=== PATIENT | female | born 2000 | race Caucasian/White ===

== ENCOUNTER → 2024-03-14 | Outpatient (CLI) | payer OTHER, SELFPAY ==
[2024-03-14 08:49] LABS: Absolute Lymphocyte Count 2.45 X10^3/uL (0.83-4.51); Absolute Neutrophil Count 4.9 X10^3/uL (2.0-7.7); Basophil# 0.05 X10^3/uL; Basophil% 0.6 % (0-1); Eosinophil# 0.14 X10^3/uL; Eosinophils% 1.7 % (0-5); Hematocrit 41.2 % (37-47); Hemoglobin 13.5 g/dL (12.0-15.0); Lymphocyte # 2.45 X10^3/ul (0.83-4.51); Lymphocyte % 30.4 % (19-41); Mean Corp Hgb Conc 32.8 g/dL (32-36); Mean Corpuscular Hgb 28.4 pg (27.0-32.0); Mean Corpuscular Volume 86.7 fL (81-99); Mean Platelet Vol. 10.4 fl (6.2-12.0); Monocyte# 0.52 X10^3/uL; Monocyte% 6.5 % (0-10); NRBC Flagged by Analyzer 0 % (0-5); Neutrophil # 4.88 X10^3/uL (2.7-7.7); Neutrophil % 60.6 % (47-70); Platelet Count 294 K/mm3 (150-450); RBC Distribution Width CV 13.2 % (11.6-14.6); RBC Distribution Width SD 41.2 fl (35.1-43.9); Red Blood Count 4.75 M/mm3 (4.2-5.4); White Blood Count 8.1 K/mm3 (4.4-11.0)
[2024-03-14 09:15] LABS: ALB/GLOB Ratio 0.8 RATIO (0.9-2.4); AST(SGOT) 17 U/L (15-37); Alanine Aminotransfer ALT/SGPT 19 U/L (13-56); Albumin, Serum 3.4 g/dL (3.2-5.0); Alkaline Phosphatase 96 U/L (45-117); Anion Gap 8 (5-15); BUN 14 mg/dL (7-18); BUN/Creat Ratio 15.6 RATIO (10-20); Calcium,Total 9.2 mg/dL (8.5-10.1); Chloride 107 mmol/L (98-107); Cholesterol 185 mg/dL (200); EST Glomerular Filtration Rate 83 mL/min (>60); Est Glom Filt Rate - Afr Amer 100 mL/min (>60); Glucose 90 mg/dL (74-106); High Density Lipoprotein 55 mg/dL; Potassium 3.8 mmol/L (3.5-5.1); Protein, Total 7.4 g/dL (6.4-8.2); Sodium Level 140 mmol/L (136-145); Triglycerides 69 mg/dL; Very Low Density Lipoprotein 14 mg/dL (5-40)
[2024-03-14 14:17] LABS: HIV - WCH Non-Reactive (Nonreactive); Hepatitis C Antibody Non-Reactive (Nonreactive)
== END | disposition home or self-care (01) ==
PROVIDERS: PCP Nurse Practitioner; Referring Provider Nurse Practitioner; Visit Provider Nurse Practitioner
DX: Z00.00 Encounter for general adult medical examination without abnormal findings (principal)
CPT/HCPCS: 36415; 80053; 80061; 85025; 86703; 86803

== ENCOUNTER 2024-04-03 10:30 | Outpatient (RCR) | payer OTHER, SELFPAY ==
--- NOTE | 2024-03-13 18:13 | HP.PTEVAL ---
Patient's Visit Information Visit Information Visit Information: LISA LOWE is a 23 year old F referred to Physical Therapy by NAVJOT Wong with a diagnosis of B foot pain. Date of Evaluation: 03/13/24 Physical Therapist: MARIA ISABEL Davis Visit Plan Frequency: 1x/Week Duration: 1 Week Plan: Pt to be fitted for orthotics once them come in. Pt to work on calf foam rolling and towel gastroc stretch at home Subjective Subjective: Pt has a problem when she goes on long distance walks her R foot goes very numb. The last time this happened she could still feel her big toe. If she just stood there she had no foot pain but back with walking it started to go numb. About 1/2 mile the numbness starts and then the numbness turns to pain. Certain shoes are worse than others....on cloud shoes increases the numbness sooner. The Nash shoes make her walk further before the numbness starts. She has a wider foot. Pain R foot pain: Pain Intensity (Out of 10): 0 Objective Objective: Gait: walks with decrease stance time on the R LE Neutral DF B to 0 degrees R hindfoot eversion compared to the L Able to heel and toe raises B without pain Met heads R 22.3 and L 22.2 Very tight B R gastroc compared to the L but both are very tight Balance/Special Test Scores Lower Extremity Functional Score: 79 Goals Goal 1:: Fit pt for orthotics Rehabilitation Potential Rehabilitation Potential: Good Anticipated Interventions Patient/Client Instruction: Educate patient on: Condition and Plan of Care For the Purpose of:: To improve gait and locomotor functions, To increase flexibility/ROM and To improve endurance Therapeutic Exercise to Include: Flexibilty training, Gait and locomotor training and Passive ROM For the Purpose of:: To improve gait and locomotor functions, To decrease soft tissue restriction and To increase flexibility/ROM Functional Training to Include: Gait training For the Purpose of:: To improve gait and locomotor functions Text: Thank you for the opportunity to evaluate your patient. For Medicare and Medicare HMO plans, please review the plan of care and approve it. It will need to be FAXED BACK to us at [phone] for Medicare purposes. For Medicare only, by signing this I certify the plan of care. Please let me know if there are questions or concerns regarding this plan of care. Physician Signature: Date:
--- NOTE | 2024-04-03 11:21 | HP.PTDCSUM ---
Discharge Summary D/C summary: It has been my pleasure to treat LISA LOWE referred by CHER WongC, with the diagnosis of B foot pain for a total of 2 visit(s). Discharge Date: 04/03/24 Please see the following information for a summary of their discharge status. Subjective Subjective: Pt is ready for her orthotics Pain R foot pain: Pain Intensity (Out of 10): 0 Objective Objective/Function: Pt felt that the orthotics fit in her shoes... Discussed her shoes might need time to stretch out or get 1/2 size bigger if needed. Goals Goal 1:: Fit pt for orthotics Goal Progress: Goal Met Plan Plan: DC PT D/C Information Discharge Comments: DC PT d/c sentence: If there are questions or concerns regarding this patient's physical therapy, please feel free to call me at [phone]. Thank you for the referral of this patient. Sincerely, Aliza Puentes, MPT Balance/Gait/Functional tests Balance/Special Test Scores Lower Extremity Functional Score: 79
== END 2024-04-03 12:38 | disposition home or self-care (01) ==
LOC: PT 10:30
PROVIDERS: PCP Nurse Practitioner; Referring Provider Nurse Practitioner; Visit Provider Nurse Practitioner
DX: M79.671 Pain in right foot (principal); M79.672 Pain in left foot
CPT/HCPCS: 97161; 97760; 97763

== ENCOUNTER → 2024-05-23 | Outpatient (CLI) | payer OTHER, SELFPAY ==
[2024-05-23 17:41] LABS: Vitamin D,25 Hydroxy 20.3 ng/mL
[2024-05-23 17:48] LABS: T4 Free Direct 0.87 ng/dL (0.76-1.46)
[2024-06-01 16:18] LABS: HPV Reflexed? NOT INDICATED
== END | disposition home or self-care (01) ==
PROVIDERS: PCP Nurse Practitioner; Referring Provider Nurse Practitioner Family; Visit Provider Nurse Practitioner Family
DX: Z12.4 Encounter for screening for malignant neoplasm of cervix (principal); Z13.29 Encounter for screening for other suspected endocrine disorder; R53.83 Other fatigue; Z13.21 Encounter for screening for nutritional disorder
CPT/HCPCS: 36415; 82306; 84439; 84443; 88175; G0145

== ENCOUNTER → 2024-05-27 | Outpatient (CLI) | payer OTHER, SELFPAY ==
--- NOTE | 2024-05-27 16:57 | US_ITS ---
EXAM: US SOFT TISSUES HEAD AND NECK, THYROID CLINICAL INDICATION: suspected enlarged thyroid TECHNIQUE: Greyscale and color doppler imaging was performed of the thyroid gland. COMPARISON: No relevant prior studies available. FINDINGS: LEFT THYROID LOBE: Unremarkable. Homogeneous echotexture with normal vascularity. No thyroid nodules are present. The left lobe of the thyroid lobe measures 4.7 x 1.6 x 1.2 cm. RIGHT THYROID LOBE: Unremarkable. Homogeneous echotexture with normal vascularity. No thyroid nodules are present. The right lobe of the thyroid lobe measures 4.8 x 1.7 x 1.3 cm. ISTHMUS: Unremarkable. No thyroid nodules are present. The isthmus measures 0.2 cm in thickness. US/Thyroid IMPRESSION: Negative thyroid ultrasound examination. Electronically Signed: Jerome Rasheed MD at 0:58 EDT ,
== END | disposition home or self-care (01) ==
LOC: US 16:57
PROVIDERS: PCP Nurse Practitioner; Referring Provider Nurse Practitioner Family; Visit Provider Nurse Practitioner Family
DX: E04.9 Nontoxic goiter, unspecified (principal)
CPT/HCPCS: 76536

== ENCOUNTER → 2024-08-05 | Outpatient (CLI) | payer OTHER, SELFPAY ==
[2024-08-05 14:41] LABS: Mucous, Urine 0 SEEN /hpf (<or=2+)
[2024-08-05 19:53] LABS: Color, Urine Yellow (Yellow); Glucose, Dipstick Normal (Normal); Ketone-Dipstick Negative (Negative); Leukocyte Esterase-Dipstick 500 /ul (Negative); Nitrite-Dipstick Negative (Negative); Occult Blood-Urine 250 /ul (Negative); Protein-Dipstick Negative (Negative); Urine Bilirubin Dipstick Negative (Negative); Urine Clarity Clear (Clear); Urine Urobilinogen Normal (Normal)
[2024-08-05 20:08] LABS: Red Blood Cells-Urine 5-10 SEEN /hpf (0-5); White Blood Cells 10-25 SEEN /hpf (0-5)
[2024-08-05 20:09] LABS: Bacteria 1+ /hpf (None Seen); Squamous Epithelial Cells - UA 0-5 SEEN /hpf (5-10)
[2024-08-05 20:10] LABS: Renal Epithelial Cells 0-5 SEEN /hpf (0-5); White Cell Cast 0-5 SEEN /lpf (None Seen)
== END | disposition home or self-care (01) ==
LOC: LABSPEC 14:36
PROVIDERS: PCP Internal Medicine; Referring Provider Internal Medicine; Visit Provider Internal Medicine
DX: R35.0 Frequency of micturition (principal)
CPT/HCPCS: 81001

== ENCOUNTER → 2024-09-19 | Outpatient (CLI) | payer SELFPAY ==
[2024-09-19 09:04] LABS: Color, Urine Yellow (Yellow); Glucose, Dipstick Normal (Normal); Ketone-Dipstick Negative (Negative); Leukocyte Esterase-Dipstick 100 /ul (Negative); Nitrite-Dipstick Negative (Negative); Occult Blood-Urine 250 /ul (Negative); Protein-Dipstick 15 mg/dl (Negative); Specific Gravity, Urine 1.025 (1.002-1.030); Urine Bilirubin Dipstick Negative (Negative); Urine Clarity Sl. Cloudy (Clear); Urine Urobilinogen Normal (Normal)
[2024-09-19 09:18] LABS: Squamous Epithelial Cells - UA 10-25 SEEN /hpf (5-10); White Blood Cells 10-25 SEEN /hpf (0-5)
[2024-09-19 09:19] LABS: Bacteria 3+ /hpf (None Seen); Mucous, Urine 1+ /hpf (<or=2+); Red Blood Cells-Urine 0-5 SEEN /hpf (0-5)
== END | disposition home or self-care (01) ==
PROVIDERS: PCP Internal Medicine; Referring Provider Physician Assistant; Visit Provider Physician Assistant
DX: R30.0 Dysuria (principal)
CPT/HCPCS: 81001; 87086; 87088

== ENCOUNTER → 2025-06-11 | Outpatient (CLI) | payer OTHER, SELFPAY | END | disposition home or self-care (01) | LOC: LABSPEC 16:15 | PROVIDERS: PCP Internal Medicine; Visit Provider Nurse Practitioner Family | DX: Z11.3 Encounter for screening for infections with a predominantly sexual mode of transmission (principal); Z12.4 Encounter for screening for malignant neoplasm of cervix; R87.612 Low grade squamous intraepithelial lesion on cytologic smear of cervix (LGSIL) | CPT/HCPCS: 87491; 87591; 88175; G0145 ==

== ENCOUNTER → 2025-07-30 | Outpatient (CLI) | payer OTHER, SELFPAY ==
--- OUTSIDE RECORDS SUMMARY | 2025-07-30 09:50 | XMS RPT_ITS | CCD ---
Author Organization [facility] Care Team Providers Care Sodder Name Role Phone Alexander Rahman MD Primary Care Provider ALEXANDER RAHMAN Primary Care Unavailable ROXANE FORMAN Attending Unavail able Eligio RESTREPO, Dr. Walls Primary Care Provider [phone] Juan Pablo Fontana Attending Provider [phone] Juan Pablo Fontana Referring Provider [phone] Dr. Kavita Del Valle MD Referring Provider Dossi LYUBOV, Dr. [place] Attending Provider [phone] Isabella HADLEY-CKrystle Attending Provider Eligio RESTREPO, Dr. Walls Primary Care Provider [phone] Dr. Kavita Del Valle MD Referring Provider Dossi DC, Dr. [place] Attending Provider [phone] Valentino Langford Attending Provider Dr. Kavita Del Valle MD Primary Care Provider [phone] Dr. Kavita Del Valle MD Referring Provider Dossi DC, Dr. [place] Attending Provider [phone] Dr. Kavita Del Valle MD Primary Care Physician Doslawrence MCARTHUR, Dr. [place] Attending Physician [phone] Valentino Langford Attending Physician Rhonda Abarca Primary Care Unavailable Rhonda Abarca Referring Unavailable Kavita Del Valle Attending Unavailable Ferullo, Rhonda Primary Care Unavailable Ferullo, Rhonda Referring Unavailable DosParis bravo Attending Unavailable Ferullo, Rhonda Primary Care Unavailable Ferullo, Rhonda Referring Unavailable DosParis bravo Attending Unavailable Maryse Yoo Attending Unavailable Milroy, Kavita Primary Care Unavailable Eligio, Kavita Referring Unavailable Eligio, Kavita Primary Care Unavailable Eligio, Kavita Referring Unavailable Doslawrence, Paris Attending Unavailable Eligio, Kavita Referring Unavailable Milroy, Kavita Primary Care Unavailable Dossi, Paris Attending Unavailable Ferullo, Rhonda Referring Unavailable Ferullo, Rhonda Primary Care Unavailable Doslawrence, Paris Attending Unavailable Ferullo, Rhonda Primary Care Unavailable Yovany Mosley Attending Unavailable Eligio, Kavita Primary Care Unavailable Eligio, Kavita Referring Unavailable Krystle Mason Attending Unavailable Ferullo, Rhonda Referring Unavailable Milroy, Kavita Primary Care Unavailable Doslawrence, Paris Attending Unavailable Eligio, Kavita Primary Care Unavailable DosParis bravo Attending Unavailable Eligio, Kavita Referring Unavailable Eligio, Kavita Primary Care Unavailable Krystle Mason Attending Unavailable Eligio, Kavita Referring Unavailable Eligio, Kavita Primary Care Unavailable Milroy, Kavita Referring Unavailable DosParis bravo Attending Unavailable Eligio, Kavita Primary Care Unavailable Eligio, Kavita Referring Unavailable DosParis bravo Attending Unavailable Ferullo, Rhonda Primary Care Unavailable Assessment, Health Risk Referring Unavaila ble Assessment, Health Risk Attending Unavaila ble Milroy, Kavita Primary Care Unavailable Juan Pablo Fontana Referring Unavailable Juan Pablo Fontana Attending Unavailable Eligio, Kavita Attending Unavailable Milroy, Kavita Primary Care Unavailable Milroy, Kavita Referring Unavailable Eligio, Kavita Primary Care Unavailable Milroy, Kavita Referring Unavailable DosParis bravo Attending Unavailable Eligio, Kavita Referring Unavailable Eligio, Kavita Primary Care Unavailable Valentino Langford Attending Unavailable Milroy, Kavita Primary Care Unavailable Eligio, Kavita Referring Unavailable DosParis bravo Attending Unavailable Milroy, Kavita Primary Care Unavailable Eligio, Kavita Referring Unavailable DosParis bravo Attending Unavailable Allergies Allergy Classification Reported Allergen(s) Allergy Type Date of Onset Reaction(s) Facility (2 sources) Cephalosporins (Antibiotic); Translations: [CEPHALOSPORINS] Drug Allergy 4 [facility] Work Phone: (1 source) Cephalosporins (Antibiotic) Drug Allergy 4 [facility] Work Phone: (6 sources) Cephalosporins (Antibiotic) Allergy to substance 5 [facility] (1 source) Cephalosporins (Antibiotic) Drug allergy (disorder) 5 [facility] Repository Medications Current Medications Medication Drug Class(es) Dates Sig (Normalized) Sig (Original) methylPREDNISolone 4 mg oral tablet (4 sources) Corticosteroid Start: 5 take 1 tablet by mouth once Methylprednisolone (Medrol (Alex)) 4 mg tablets,dose pack Active 0 PO per package directions 21 March 04, 2025 12:00am PO PER PKG DIR Complies with drug therapy triamcinolone acetonide 5 mg/ml topical cream (8 sources) Corticosteroid Start: 4 Triamcinolone Acetonide 0.5 % cream Active 1 NMA TOPICAL DAILY as needed for rash 15 March 04, 2024 12:00am Complies with drug therapy Start: 11-27-2013 triamcinolone acetonide 0.1 % cream Apply 1 application to affected area twice daily as needed. TO AFFECTED AREA. 1 Tube 1 11/27/2013 Active Comment on above: Apply 1 application to affected area twice daily as needed. TO AFFECTED AREA. Completed/Discontinued Medications Medication Drug Class(es) Dates Sig (Normalized) Sig (Original) Norgestimate-Ethin yl Estradiol (15 sources) Progestin, Estrogen Start: 04-04-2024 End: 05-23-2024 Norgestimate-Ethinyl Estradiol 0.25-35 mg-mcg tablet Discontinued 1 {tbl} PO daily 84 0 April 04, 2024 8:43am May 23, 2024 3:28pm TAKE 1 TABLET BY MOUTH ONE TIME DAILY -TAKE ACTIVE TABLETS ONLY. START A NEW PACK EVERY 3 WEEKS DIRECTED Start: 04-04-2024 End: 05-23-2024 Norgestimate-Ethinyl Estradi ol 0.25-35 mg-mcg tablet Discontinued 1 {tbl} PO daily 84 April 04, 2024 8:43am May 23, 2024 3:28pm TAKE 1 TABLET BY MOUTH ONE TIME DAILY -TAKE ACTIVE TABLETS ONLY. START A NEW PACK EVERY 3 WEEKS DIRECTED Start: 03-04-2024 End: 04-04-2024 Norgestimate-Ethinyl Estradi ol 0.25-35 mg-mcg tablet Discontinued {tbl} PO March 04, 2024 12:00am April 04, 2024 8:43am Start: 02-27-2023 norgestimate 0 .25 mg-ethinyl estradiol 35 mcg (ESTARYLLA) 0.25-35 mg-mcg per tablet TAKE 1 TABLET BY MOUTH ONE TIME DAILY -TAKE ACTIVE TABLETS ONLY. START A NEW PACK EVERY 3 WEEKS DIRECTED 112 tablet 4 02/27/2023 Active Start: 08-23-2021 End: 02-27-2023 ESTARYLLA 0.25-35 mg-mcg per tablet TAKE 1 TABLET BY MOUTH ONE TIME DAILY -TAKE ACTIVE TABLETS ONLY. START A NEW PACK EVERY 3 WEEKS DIRECTED 112 tablet 0 08/23/2021 02/27/2023 Discontinued Start: 08-23-2021 ESTARYLLA 0.25 -35 mg-mcg per tablet TAKE 1 TABLET BY MOUTH ONE TIME DAILY -TAKE ACTIVE TABLETS ONLY. START A NEW PACK EVERY 3 WEEKS DIRECTED 112 tablet 0 08/23/2021 Active Comment on above: TAKE 1 TABLET BY MANJU TH ONE TIME DAILY -TAKE ACTIVE TABLETS ONLY. START A NEW PACK EVERY 3 WEEKS DIRECTED nitrofurantoin, macrocrystals 25 mg / nitrofurantoin, monohydrate 75 mg oral capsule (6 sources) Nitrofuran Antibacterial Start: 025 End: take 1 capsule by mouth every twelve hours at mealtime Nitrofurantoin Monohyd/M-Cryst (Macrobid) 100 mg capsule Discontinued 100 mg PO Q12H 10 5 0 August 05, 2024 1:00am August 09, 2024 1:00am August 10, 2024 1:21am must administer [place] [id number] unt/ml / trimethoprim 1 mg/ml ophthalmic solution (6 sources) Dihydrofolate Reductase Inhibitor Antibacterial, Polymyxin-class Antibacterial Start: End: Polymyxin B Sulf-Trimethoprim 10,000 unit- 1 mg/mL drops Discontinued 1 NMA OPHTHALMIC Q3H 10 7 0 May 03, 2024 12:00am May 09, 2024 12:00am May 10, 2024 12:16am while awake; do not exceed 6 doses in 24 hours Problems Active Problems Problem Classification Problem Date Documented Da te Episodic/Chronic Administrative/social admission (5 sources) First encounter by subject; Translations: [Persons encountering health services in other specified circumstances] 08-02-2024 Episodic Anxiety disorders (6 sources) Mixed anxiety and depressive disorder; Translations: [Anxiety disorder, unspecified] 08-05-2024 Chronic Contraceptive and procreative management (9 sources) Patient encounter status; Translations: [Encounter for other general counseling and advice on contraception] 02-27-2023 Episodic E Codes: Natural/environment (6 sources) Bitten or stung by nonvenomous insect and other nonvenomous arthropods, initial encounter; Translations: [Insect bite] 08-02-2024 Episodic Headache; including migraine (7 sources) Migraine; Translations: [Migraine, unspecified, not intractable, without status migrainosus] Onset: 08-16-2024 03-05-2024 Chronic Inflammation; infection of eye (except that caused by tuberculosis or sexually transmitteddisease) (6 sources) Acute infectious conjunctivitis; Translations: [Unspecified acute conjunctivitis, unspecified eye] 08-02-2024 Episodic Malaise and fatigue (6 sources) Fatigue; Translations: [Other fatigue] 08-05-2024 Episodic Menstrual disorders (1 source) Dysmenorrhea; Translations: [Dysmenorrhea, unspecified] 02-27-2023 Chronic Other acquired deformities (18 sources) Spondylolysis; Translations: [Spondylolysis, lumbar region] 06-17-2024 Episodic Other bone disease and musculoskeletal deformities (20 sources) Segmental and somatic dysfunction; Translations: [Segmental and somatic dysfunction of cervical region] 06-17-2024 Episodic Other bone disease and musculoskeletal deformities (1 source) Segmental and somatic dysfunction of cervical region; Translations: [Segmental and somatic dysfunction of cervical region] Onset: 06-10-2025 Episodic Other bone disease and musculoskeletal deformities (1 source) Segmental and somatic dysfunction of lumbar region; Translations: [Segmental and somatic dysfunction of lumbar region] Onset: 06-10-2025 Episodic Other bone disease and musculoskeletal deformities (1 source) Segmental and somatic dysfunction of thoracic region; Translations: [Segmental and somatic dysfunction of thoracic region] Onset: 06-10-2025 Episodic Other bone disease and musculoskeletal deformities (1 source) Segmental and somatic dysfunction of pelvic region; Translations: [Segmental and somatic dysfunction of pelvic region] Onset: 06-10-2025 Episodic Other connective tissue disease (5 sources) Foot pain; Translations: [Pain in right foot] 03-05-2024 Episodic Other connective tissue disease (1 source) Pain in both feet; Translations: [Pain in right foot] 03-05-2024 Episodic Other lower respiratory disease (10 sources) Cough; Translations: [Cough] 11-16-2024 Episodic Other screening for suspected conditions (not mental disorders or infectious disease) (5 sources) Cancer cervix screening status; Translations: [Encounter for screening for malignant neoplasm of cervix] 08-02-2024 Episodic Other upper respiratory disease (10 sources) Nasal discharge; Translations: [Other specified disorders of nose and nasal sinuses] 11-16-2024 Episodic Other upper respiratory disease (10 sources) Nasal congestion; Translations: [Nasal congestion] 11-16-2024 Episodic Thyroid disorders (6 sources) Goiter; Translations: [Nontoxic goiter, unspecified] 08-02-2024 Chronic Unclassified (1 source) Acute cough; Translations: [Acute cough] Onset: 11-16-2024 Past or Other Problems Problem Classification Problem Date Documented Date Episodic/Chronic Cancer of cervix (7 sources) Low grade squamous intraepithelial lesion on cervical Papanicolaou smear; Translations: [Low grade squamous intraepithelial lesion on cytologic smear of cervix (LGSIL)] Onset: 08-08-2024 06-05-2024 Episodic Comment on above: Repeat PAP 1 year (n eeds 2024) Genitourinary symptoms and ill-defined conditions (8 sources) Dysuria; Translations: [Dysuria] Onset: 08-28-2024 08-30-2024 Episodic Other acquired deformities (1 source) Spondylolysis, lumbar region; Translations: [Spondylolysis, lumbar region] Onset: 08-08-2024 Episodic Other upper respiratory disease (1 source) Nasal congestion; Translations: [Nasal congestion] Onset: 11-16-2024 Episodic Other upper respiratory disease (1 source) Other specified disorders of nose and nasal sinuses; Translations: [Other specified disorders of nose and nasal sinuses] Onset: 11-16-2024 Episodic Other upper respiratory infections (11 sources) Posterior rhinorrhea; Translations: [Postnasal drip] Onset: 11-16-2024 11-16-2024 Episodic Spondylosis; intervertebral disc disorders; other back problems (20 sources) Backache; Translations: [Dorsalgia, unspecified] Onset: 12-03-2024 10-14-2024 Episodic Results Test Name Value Interpretation Reference Range Facility Chiropractic Reporton 2024 Chiropractic Report [facility] [place] [address] OFFICE VISIT Date of Service: 06/10/25 MR#: [id number] Acct: [id number] Name: CECILIA CALDERON Rep #: [id number] : 2000 Provider: LYUBOV [place] Do ssi Age/Sex: 24/F [place] [facility] [place]: Signed Intake Vital Signs 11/16/24 10:56 Height 5 ft 3 in Intake Visit Reasons: Back pain Chief Complaint: neck, upper back discomfort Employee'S Representative Required: No Accompanied by: Self Is patient in pain?: No Allergies Cephalosporins Allergy (Mild, Verified 06/10/25 15:27) Rash Medications ???Medication ???Instructions ???Recorded ???Confirmed ???Type triamcinolone acetonide 0.5 % 1 applic topical DAILY PRN rash 06/10/25 Rx topical cream #15 grams benzoyl peroxide 10 % topical 1 applic topical QDAY 06/10/2506/24 History cream (Acne Treatment (benzoyl peroxide)) PFSH Medical History Fatigue Anxiety and depression Frequent headaches Surgical History S/P wisdom tooth extraction Family History Grandmother Hypertension Grandfather Diabetes Social History adopted: No household members: family current occupational status: employed 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 Neck and B/L upper back tightness continues unchanged. Denies pain. Occasional headaches but not recently. Her neck pain is aggravated by sitting for long periods at a computer for work and stress. She treats her pain at home with heat and dual action Tyl/Ibu as needed. She states her low back continues to feel pretty good. She denies new injury, numbness, tingling or radiculopathy. She reports chiropractic adjustments are helpful in relieving her pain and discomfort but it gradually returns. Location: neck/upper back Duration: intermittent Aggravating or associated factors: sitting, computer work, answering phones, stress Relieving factors: chiro, heat Pain Quality: dull Exam Musc General: Yes normal posture, normal gait, joint tenderness and decreased range of motion; No muscle weakness Cervical Spine: Yes normal cervical lordosis, Yes cervical muscular tenderness bilateral lower , Yes cervical spasm right upper intrinsics, bilateral lower trapezius and paracervical muscles and Yes misalignment misalignment: C2, C5, C6 and C7 Thoracic/Lumber: Yes thoracic and lumbar spine normal to inspection, Yes paraspinal tenderness bilaterally in the lower lumbar and on the right greater than left (upper thoracic), Yes thoraco- lumbar spasm bilaterally (lumbar paraspinals ) in the mid lumbar and in the lower lumbar, on the right greater than left (trap) and on the left greater than right (glute medius) and Yes misalignment T1, T2, T4, T5, T6, L3, L4 and LIL Office Procedures Procedures - Chiropractic Procedures Manipulation: Cervical C2 and C6, Lumbar L3, Thoracic T2 and T5 and Pelvis LIL Manipulation: 3-4 regions Traction, Mechanical: Yes Hot and/or cold packs: Yes Patient Response: positive Assessment and Plan Assessment and Plan (1) Back pain: (2) Segmental and somatic dysfunction of cervical region: Status: Acute (3) Segmental and somatic dysfunction of lumbar region: Status: Acute (4) Segmental and somatic dysfunction of thoracic region: Status: Acute (5) Segmental and somatic dysfunction of pelvic region: Status: Acute Orders: Orders Chiropractic Treatments Today M99.01 - Segmental and somatic dysfunction of cervical region, M99.02 - Segmental and somatic dysfunction of thoracic region, M99.03 - Segmental and somatic dysfunction of lumbar region, M99.05 - Segmental and somatic dysfunction of pelvic region Plan Patient was treated without incident. Continue care as needed. She gets improvement with her chiro visits. Plan Details Goals Barriers: Goals Decrease HAs Decrease spasm Decrease pain Improve intersegmental motion Barriers pars defect L5 Follow Up: PRN Coding Level of Care Code No Charge Diagnoses Back pain M54.9 Segmental and somatic dysfunction of cervical region M99.01 (more content not included)... Normal [facility] Chiropractic Reporton 2024 Chiropractic Report [facility] [address] [place] [address] OFFICE VISIT Date of Service: 05/06/25 MR#: [id number] Acct: [id number] Name: CECILIA CALDERON Rep #: [id number] : 2000 Provider: LYUBOV Gandhi Age/Sex: 24/F Location: [facility] Status: Signed Intake Vital Signs 11/16/24 10:56 Height 5 ft 3 in Intake Visit Reasons: Back pain Chief Complaint: neck, upper back discomfort Is patient in pain?: Yes (neck, upper back ) Pain scale (1-10): 3 Allergies Cephalosporins Allergy (Mild, Verified 05/06/25 16:02) Rash Medications ???Medication ???Instructions ???Recorded ???Confirmed ???Type triamcinolone acetonide 0.5 % 1 applic topical DAILY PRN rash 05/06/25 Rx topical cream #15 grams methylprednisolone 4 mg tablets in See Rx Instructions PO PER PKG D IR 03/04/25 05/06/25 Rx a dose pack (Medrol (Alex)) #21 tabs PFSH Medical History Fatigue Anxiety and depression Frequent headaches Surgical History S/P wisdom tooth extraction Family History Grandmother Hypertension Grandfather Diabetes Social History adopted: No household members: family current occupational status: employed current occupation: [employer] secretary pets and animals: No sexually active: Yes Smoking Status: Never smoker alcohol intake: current alcohol intake frequency: holidays/special occasions only substance use type: does not use diet: lactose free caffeine: Yes (1) Type: coffee and tea frequency: 3-4 times per week seatbelt use: always do you feel safe at home: Yes HPI Back pain Chief Complaint: neck upper back pain Visit Number: 8 Details: Cecilia Calderon a 24 year old female is here to follow up with neck, upper back pain. Pt. advises she continues to experience neck stiffness that extends into her upper back and across her shoulder blades. She rates her neck pain 3/10 and continues to have occasional headaches. Her neck pain is aggravated by sitting for long periods at a computer for work and stress. She treats her pain at home with heat and dual action Tyl/Ibu as needed. She states her low back continues to feel pretty good. She denies new injury, numbness, tingling or radiculopathy. She reports chiropractic adjustments are helpful in relieving her pain and discomfort but it gradually returns. Location: neck/back Duration: intermittent Aggravating or associated factors: sitting, answering phones,ADLs Relieving factors: chiro Pain Quality: aching and dull Exam Musc General: Yes normal posture, normal gait, joint tenderness and decreased range of motion; No muscle weakness Cervical Spine: Yes normal cervical lordosis, Yes cervical muscular tenderness bilateral lower , Yes cervical spasm right upper intrinsics, bilateral lower trapezius and paracervical muscles and Yes misalignment misalignment: C2, C5, C6 and C7 Thoracic/Lumber: Yes thoracic and lumbar spine normal to inspection, Yes paraspinal tenderness bilaterally in the lower lumbar and on the right greater than left (upper thoracic), Yes thoraco- lumbar spasm bilaterally (lumbar paraspinals ) in the mid lumbar and in the lower lumbar, on the right greater than left (trap) and on the left greater than right (glute medius) and Yes misalignment T1, T2, T4, T5, T6, L3, L4 and LIL Office Procedures Procedures - Chiropractic Procedures Manipulation: Cervical C2 and C6, Lumbar L3, Thoracic T2 and T5 and Pelvis LIL Manipulation: 3-4 regions Traction, Mechanical: Yes Patient Response: positive Assessment and Plan Assessment and Plan (1) Segmental and somatic dysfunction of cervical region: Status: Acute (2) Segmental and somatic dysfunction of lumbar region: Status: Acute (3) Segmental and somatic dysfunction of thoracic region: Status: Acute (4) Segmental and somatic dysfunction of pelvic region: Status: Acute Orders: Orders Chiropractic Treatments 05/06/25 M99.01 - Segmental and somatic dysfunction of cervical region, M99.02 - Segmental and somatic dysfunction of thoracic region, M99.03 - Segmental and somatic dysfunction of lumbar region, M99.05 - Segmental and somatic dysfunction of pelvic region Plan Patient was treated without incident. Continue care as needed. She gets improvement with her chiro visits. Plan Details Goals Barriers: Goals Decrease HAs Decrease spasm Decrease pain Improve intersegmental motion Barriers pars defect L5 Follow Up: PRN Coding Level of Care Code No Charge Diagnoses Segmental and somatic dysfunction of cervical region M99.01 Segmental and somatic dysfu (more content not included)... Normal [facility] Chiropractic Reporton 2024 Chiropractic Report [facility] [address] [place] [id number] OFFICE VISIT Date of Service: 04/07/25 MR#: [id number] Acct: [id number] Name: CECILIA CALDERON Rep #: [id number] : 2000 Provider: LYUBOV Gandhi Age/Sex: 24/F [place] [facility] [place] Signed Intake Vital Signs 11/16/24 10:56 Height 5 ft 3 in Intake Visit Reasons: Back pain Chief Complaint: neck, upper back discomfort Allergies Cephalosporins Allergy (Mild, Verified 04/07/25 15:23) Rash Medications ???Medication ???Instructions ???Recorded ???Confirmed ???Type triamcinolone acetonide 0.5 % 1 applic topical DAILY PRN rash 04/07/25 Rx topical cream #15 grams methylprednisolone 4 mg tablets in See Rx Instructions PO PER PKG D IR 03/04/25 04/07/25 Rx a dose pack (Medrol (Alex)) #21 tabs PFSH Medical History Fatigue Anxiety and depression Frequent headaches Surgical History S/P wisdom tooth extraction Family History Grandmother Hypertension Grandfather Diabetes Social History adopted: No household members: family current occupational status: employed 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 Pt. advises she is experiencing neck stiffness that extends into her upper back and across her shoulder blades. She denies mid back/bra line area pain or discomfort. She continues to have occasional headaches. Her neck discomfort is aggravated sitting for long periods at a computer for work. She treats her pain at home with heat and dual action Tyl/Ibu as needed. She states her low back continues to feel pretty good. She denies new injury, numbness, tingling or radiculopathy. She reports chiropractic adjustments are helpful in relieving her pain and discomfort but it gradually returns. Location: neck/back Duration: intermittent Aggravating or associated factors: sitting, answering phones,ADLs Relieving factors: chiro Pain Quality: aching and dull Exam Musc General: Yes normal posture, normal gait, joint tenderness and decreased range of motion; No muscle weakness Cervical Spine: Yes normal cervical lordosis, Yes cervical muscular tenderness bilateral lower , Yes cervical spasm right upper intrinsics, bilateral lower trapezius and paracervical muscles and Yes misalignment misalignment: C2, C5, C6 and C7 Thoracic/Lumber: Yes thoracic and lumbar spine normal to inspection, Yes paraspinal tenderness bilaterally in the lower lumbar and on the right greater than left (upper thoracic), Yes thoraco- lumbar spasm bilaterally (lumbar paraspinals ) in the mid lumbar and in the lower lumbar, on the right greater than left (trap) and on the left greater than right (glute medius) and Yes misalignment T1, T2, T4, T5, T6, L3, L4 and LIL Office Procedures Procedures - Chiropractic Procedures Manipulation: Cervical C2 and C6, Lumbar L3, Thoracic T2 and T5 and Pelvis LIL Manipulation: 3-4 regions Traction, Mechanical: Yes Patient Response: positive Assessment and Plan Assessment and Plan (1) Segmental and somatic dysfunction of cervical region: Status: Acute (2) Segmental and somatic dysfunction of lumbar region: Status: Acute (3) Segmental and somatic dysfunction of thoracic region: Status: Acute (4) Segmental and somatic dysfunction of pelvic region: Status: Acute (5) 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 Continue care as needed. Plan Details Goals Barriers: Goals Decrease HAs Decrease spasm Decrease pain Improve intersegmental motion Barriers pars defect L5 Follow Up: PRN Coding Level of Care Code No Charge Diagnoses Segmental and somatic dysfunction of cervical region M99.01 Segmental and somatic dysfunction of lumbar region M99.03 Segmental and somatic (more content not included)... Normal [facility] Chiropractic Reporton 2024 Chiropractic Report [facility] [address] [place] [address] [id number] OFFICE VISIT Date of Service: 03/11/25 MR#: [id number] Acct: [id number] Name: CECILIA CALDERON Rep #: [id number] : 2000 Provider: LYUBOV Gandhi Age/Sex: 24/F Location: [facility] Status: Signed Intake Vital Signs 11/16/24 10:56 Height 5 ft 3 in Intake Visit Reasons: Back pain Chief Complaint: mid back Is patient in pain?: Yes (mid back) Pain scale (1-10): 2 Allergies Cephalosporins Allergy (Mild, Verified 03/11/25 16:20) Rash Medications ???Medication ???Instructions ???Recorded ???Confirmed ???Type triamcinolone acetonide 0.5 % 1 applic topical DAILY PRN rash 03/11/25 Rx topical cream #15 grams methylprednisolone 4 mg tablets in See Rx Instructions PO PER PKG D IR 03/04/25 03/11/25 Rx a dose pack (Medrol (Alex)) #21 tabs PFSH Medical History Fatigue Anxiety and depression Frequent headaches Surgical History S/P wisdom tooth extraction Family History Grandmother Hypertension Grandfather Diabetes Social History adopted: No household members: family current occupational status: employed 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 Pt. states her neck is stiff but she feels a great deal of tension across her shoulder blades and into her mid back/bra line area. She states rates her pain 2/10 today. She continues to have occasional headaches. Her pain is exacerbated by sitting for long periods at a computer for work. She treats her pain at home with heat and dual action Tyl/Ibu as needed. She states her low back continues to feel pretty good. She denies new injury, numbness, tingling or radiculopathy. She reports chiropractic adjustments are helpful in relieving her pain and discomfort but it gradually returns. Location: neck/back Duration: intermittent Aggravating or associated factors: sitting, answering phones,ADLs Relieving factors: chiro Pain Quality: aching and dull Exam Musc General: Yes normal posture, normal gait, joint tenderness and decreased range of motion; No muscle weakness Cervical Spine: Yes normal cervical lordosis, Yes cervical muscular tenderness bilateral diffuse , Yes cervical spasm right upper intrinsics, bilateral lower trapezius and paracervical muscles and Yes misalignment misalignment: C2, C5, C6 and C7 Thoracic/Lumber: Yes thoracic and lumbar spine normal to inspection, Yes paraspinal tenderness bilaterally in the lower lumbar and on the right greater than left (upper thoracic), Yes thoraco- lumbar spasm bilaterally (lumbar paraspinals ) in the mid lumbar and in the lower lumbar, on the right greater than left (trap) and on the left greater than right (glute medius) and Yes misalignment T1, T2, T4, T5, T6, L3, L4 and LIL Office Procedures Procedures - Chiropractic Procedures Manipulation: Cervical C2 and C6, Lumbar L3, Thoracic T2 and T5 and Pelvis LIL Manipulation: 3-4 regions Traction, Mechanical: Yes Patient Response: positive Assessment and Plan Assessment and Plan (1) Back pain: Qualifiers: Back pain location: thoracic back pain Chronicity: acute Back pain laterality: bilateral Qualified Code(s): M54.6 - Pain in thoracic spine (2) Segmental and somatic dysfunction of cervical region: Status: Acute (3) Segmental and somatic dysfunction of lumbar region: Status: Acute (4) Segmental and somatic dysfunction of thoracic region: Status: Acute (5) Segmental and somatic dysfunction of pelvic region: Status: Acute (6) 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 Continue care as needed. Plan Details Goals Barriers: Goals Decrease HAs Decrease spasm Decrease pain Improve intersegmental motion Barriers pars defect L5 Foll (more content not included)... Normal [facility] Urgent Care Visit Reporton 0 03-04-2025 Urgent Care Visit Report [facility] [address], [address] [place] [address] OFFICE VISIT Date of Service: 03/04/25 MR#: [id number] Acct: [id number] Name: CECILIA CALDERON Rep #: [id number] : 2000 Provider: JACKLYN Noyola Age/Sex: 24/F Location: [facility] Status: Signed Intake Vital Signs 11/16/24 10:56 03/04/25 11:20 Height 5 ft 3 in BP 124/60 H 110/66 Blood Pressure Location Lt brachial Lt brachial Position Sitting Sitting Respiration 16 16 Pulse 113 H 94 Pulse Source NIBP Monitor Temp 98.7 F 98.5 F Temp Source Oral Oral Pulse Oximetry (%) 98 97 Oxygen Delivery Method room air room air Intake Visit Reasons: THROAT CONGESTION Chief Complaint: Congestion Employee'S Representative Required: No Accompanied by: Self Is patient in pain?: No Allergies Cephalosporins Allergy (Mild, Verified 03/04/25 11:21) Rash Medications ???Medication ???Instructions ???Recorded ???Confirmed ???Type triamcinolone acetonide 0.5 % 1 applic topical DAILY PRN rash 03/04/25 Rx topical cream #15 grams methylprednisolone 4 mg tablets in See Rx Instructions PO PER PKG D IR 03/04/25 03/04/25 Rx a dose pack (Medrol (Alex)) #21 tabs Nurse's Note: patient presents with head congestion, st, ear ache, and swollen/tender lymph nodes for 3 days. FOR[facility]LY [facility] Medical History Fatigue Anxiety and depression Frequent headaches Surgical History S/P wisdom tooth extraction Family History Grandmother Hypertension Grandfather Diabetes Social History adopted: No household members: family current occupational status: employed current occupation: [employer] secretary pets and animals: No sexually active: Yes Smoking Status: Never smoker alcohol intake: current alcohol intake frequency: holidays/special occasions only substance use type: does not use diet: lactose free caffeine: Yes (1) Type: coffee and tea frequency: 3-4 times per week seatbelt use: always do you feel safe at home: Yes HPI HPI Chief Complaint: Congestion Details: CECILIA CALDERON, is a 24 F who presents to the office today for initial evaluation at the [facility] for 48-hour history of nasal congestion, cough, irritated/sore throat with postnasal drip and swollen tender cervical lymph nodes she says states. No complaints of fever, chills, sweats, lightheadedness/diz ziness, nausea/vomiting, difficulty swallowing/drooling , or chest pain/shortness of breath/dyspnea on exertion. No close contacts with similar complaints. [id number] Claritin and Zyrtec and Roaslinda-D all tried without assist. No other associated symptoms and no alleviating/aggrava ting factors. ROS Const Constitutional: No other (As above) Exam Const General: cooperative, healthy appearing and no acute distress Orientation: alert, awake and oriented x3 HENMT Head: normal to inspection Ears: hearing grossly normal bilaterally, external ears normal, TM's normal bilaterally and EAC's normal Nose: external nose normal, nares normal, septum normal and clear nasal discharge Face and sinus: normal facial exam, sinuses nontender and face symmetric Mouth: oral mucosae normal, lip normal, tongue normal and oropharynx normal Throat: posterior oropharynx normal, tonsils normal without erythema or exudate or hypertrophy, uvula midline and trace clear postnasal drainage Eyes General: appearance normal, both eyes and all related structures Neck Neck: normal visual inspection, full ROM, no anterior or posterior lymphadenopathy and nontender to palpation throughout, no meningeal signs and supple Neck mass: No Thyroid: thyroid normal Chest Chest palpation inspection: normal inspection of the chest Resp Effort Inspection: normal respiratory effort, able to speak in complete sentences and no unsolicited cough during today's exam Auscultation: Bilateral: Clear to Auscultation Cardio Palpation: normal PMI Rate: regular Rhythm: regular rhythm Heart Sounds: S1 normal, S2 normal, no gallops, no murmurs and no rubs Pulses: radial pulses present Skin General: no rashes or lesions noted Neuro General: patient alert, patient awake and patient oriented x3 Cognition: normal cognition Speech: speech normal Psych Appearance: grossly normal Mental Status: mental status grossly normal Mood: congruent mood Affect: normal affect Speech and Movement: speech and movement normal Attitude: cooperative Diagnoses URI (upper respiratory infection) J06.9 Assessment and Plan Assessment and Plan (1) URI (upper respiratory infection): Status: Acute Plan: Medrol dose pack as prescri (more content not included)... Normal [facility] Office Visit Reporton 2024 Office Visit Report [facility] [address] [place] [address] OFFICE VISIT Date of Service: 11/16/24 MR#: [id number] Acct: [id number] Patient: CECILIA CALDERON Rep #: [id number] : 2000 Provider: NAVJOT Mason Age/Sex: 24/F Location: [facility] Status: Signed Employer Purchased Covid Test Note: Patient here today for Covid Testing, requested by their Employer. Assessment and Plan Plan Details Goals Barriers: Goals Decrease HAs Decrease spasm Decrease pain Improve intersegmental motion Barriers pars defect L5 [facility] Billing Sheet Covid Covid Swab-Rapid: Yes 03/01/25 0840 Date Krystle MORFIN Cosigner Signature: Date (if applicable) CC: Normal [facility] Chiropractic Reporton 2024 Chiropractic Report [facility] [address] [place] [id number] OFFICE VISIT Date of Service: 02/18/25 MR#: [id number] Acct: [id number] Name: CECILIA CALDERON Rep #: [id number] : 2000 Provider: LYUBOV Gandhi Age/Sex: 24/F Location: [facility] Status: Signed Intake Vital Signs 11/16/24 10:56 Height 5 ft 3 in BP 124/60 H Blood Pressure Location Lt brachial Position Sitting Respiration 16 Pulse 113 H Pulse Source NIBP Temp 98.7 F Temp Source Oral Pulse Oximetry (%) 98 Oxygen Delivery Method room air Intake Visit Reasons: Back pain Chief Complaint: Back pain Allergies Cephalosporins Allergy (Mild, Verified 01/16/25 16:29) Rash FOR[facility] Medical History Fatigue Anxiety and depression Frequent headaches Surgical History S/P wisdom tooth extraction Family History Grandmother Hypertension Grandfather Diabetes Social History adopted: No household members: family current occupational status: employed current occupation: [employer] secretary pets and animals: No sexually active: Yes Smoking Status: Never smoker alcohol intake: current alcohol intake frequency: holidays/special occasions only substance use type: does not use diet: lactose free caffeine: Yes (1) Type: coffee and tea frequency: 3-4 times per week seatbelt use: always do you feel safe at home: Yes HPI Back pain Chief Complaint: neck upper back pain Visit Number: 5 Details: Cecilia Calderon a 24 year old female is here to follow up with neck, upper back pain. Pt. states she is experiencing stiffness in her neck that extends down into her traps bilaterally and across her shoulder blades. She also c/o decreased ROM. She reports a migraine headache on Monday. She states most of her pain is at the base of her skull. Her pain is exacerbated by sitting for long periods at a computer for work. She treats her pain at home with heat and dual action Tyl/Ibu as needed. She states her low back has not been bothering her recently. She denies new injury, numbness, tingling or radiculopathy. She reports chiropractic adjustments are helpful in relieving her pain and discomfort but it gradually returns. Location: neck/back Duration: intermittent Aggravating or associated factors: sitting, answering phones,ADLs Relieving factors: chiro Pain Quality: aching and dull Exam Musc General: Yes normal posture, normal gait, joint tenderness and decreased range of motion; No muscle weakness Cervical Spine: Yes normal cervical lordosis, Yes cervical muscular tenderness bilateral diffuse , Yes cervical spasm right upper intrinsics, bilateral lower trapezius and paracervical muscles and Yes misalignment misalignment: C2, C5, C6 and C7 Thoracic/Lumber: Yes thoracic and lumbar spine normal to inspection, Yes paraspinal tenderness bilaterally in the lower lumbar and on the right greater than left (upper thoracic), Yes thoraco- lumbar spasm bilaterally (lumbar paraspinals ) in the mid lumbar and in the lower lumbar, on the right greater than left (trap) and on the left greater than right (glute medius) and Yes misalignment T1, T2, T4, T5, T6, L3, L4 and LIL Office Procedures Procedures - Chiropractic Procedures Manipulation: Cervical C2 and C6, Lumbar L3, Thoracic T2 and T5 and Pelvis LIL Manipulation: 3-4 regions Traction, Mechanical: Yes Patient Response: positive Assessment and Plan Assessment and Plan (1) Segmental and somatic dysfunction of cervical region: Status: Acute (2) Segmental and somatic dysfunction of lumbar region: Status: Acute (3) Segmental and somatic dysfunction of thoracic region: Status: Acute (4) Segmental and somatic dysfunction of pelvic region: Status: Acute (5) 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 Continue care as needed. Plan Details Goals Barriers: Goals Decrease HAs Decrease spasm Decrease pain Improve intersegmental motion Barriers pars defect L5 Follow Up: PRN Coding Level of Care Code No Charge Diagnoses Segmental and somatic dysfunction of cervical region M99.01 Segmental and somatic dysfunction of lumbar region M99.03 Segmental and somatic dysfunction of thoracic region M99.02 Segmental and somatic dysfunction of (more content not included)... Normal [facility] Chiropractic Reporton 2024 Chiropractic Report [facility] [address] [place] [address] OFFICE VISIT Date of Service: 01/16/25 MR#: [id number] Acct: [id number] Name: CECILIA CALDERON Rep #: [id number] : 2000 Provider: LYUBOV Gandhi Age/Sex: 24/F Location: [facility] Status: Signed Intake Vital Signs 11/16/24 10:56 Height 5 ft 3 in BP 124/60 H Blood Pressure Location Lt brachial Position Sitting Respiration 16 Pulse 113 H Pulse Source NIBP Temp 98.7 F Temp Source Oral Pulse Oximetry (%) 98 Oxygen Delivery Method room air Intake Visit Reasons: Back pain Chief Complaint: Back pain Is patient in pain?: Yes (neck, upper back ) Pain scale (1-10): 3 Allergies Cephalosporins Allergy (Mild, Verified 01/16/25 16:29) Rash Medications ???Medication ???Instructions ???Recorded ???Confirmed ???Type triamcinolone acetonide 0.5 % 1 applic topical DAILY PRN rash 01/16/25 Rx topical cream #15 grams PFSH Medical History Fatigue Anxiety and depression Frequent headaches Surgical History S/P wisdom tooth extraction Family History Grandmother Hypertension Grandfather Diabetes Social History adopted: No household members: family current occupational status: employed 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 Pt. states she is experiencing neck pain and stiffness that extends down into her traps bilaterally and across her shoulder blades. She rates her pain 4/10. She c/o a tension headaches today. She states most of her pain is at the base of her skull. Her pain is exacerbated by sitting for long periods at a computer for work. She treats her pain at home with heat and dual action Tyl/Ibu as needed. She states her low back has not been bothering her recently. She denies new injury, numbness, tingling or radiculopathy. She reports chiropractic adjustments are helpful in relieving her pain and discomfort. Location: neck/back Duration: frequent Aggravating or associated factors: sitting, answering phones,ADLs Relieving factors: chiro Pain Quality: aching and dull Exam Musc General: Yes normal posture, normal gait, joint tenderness and decreased range of motion; No muscle weakness Cervical Spine: Yes normal cervical lordosis, Yes cervical muscular tenderness bilateral diffuse , Yes cervical spasm right upper intrinsics, bilateral lower trapezius and paracervical muscles and Yes misalignment misalignment: C2, C5, C6 and C7 Thoracic/Lumber: Yes thoracic and lumbar spine normal to inspection, Yes paraspinal tenderness bilaterally in the upper thoracic, in the mid thoracic and in the lower lumbar and on the right greater than left (upper thoracic), Yes thoraco-lumbar spasm bilaterally (lumbar paraspinals ) in the mid lumbar and in the lower lumbar, on the right greater than left (trap) and on the left greater than right (glute medius) and Yes misalignment T1, T2, T4, T5, T6, L3, L4 and LIL Office Procedures Procedures - Chiropractic Procedures Manipulation: Cervical C2 and C6, Lumbar L3, Thoracic T2 and T5 and Pelvis LIL Manipulation: 3-4 regions Traction, Mechanical: Yes Patient Response: positive Assessment and Plan Assessment and Plan (1) Segmental and somatic dysfunction of cervical region: Status: Acute (2) Segmental and somatic dysfunction of lumbar region: Status: Acute (3) Segmental and somatic dysfunction of thoracic region: Status: Acute (4) Segmental and somatic dysfunction of pelvic region: Status: Acute (5) 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 Continue care should symptoms persist. Plan Details Goals Barriers: Goals Decrease HAs Decrease spasm Decrease pain Improve intersegmental malik (more content not included)... Normal [facility] Chiropractic Reporton 2024 Chiropractic Report [facility] [address] [place] [address] OFFICE VISIT Date of Service: 12/03/24 MR#: [id number] Acct: [id number] Name: CECILIA CALDERON Rep #: [id number] : 2000 Provider: LYUBOV Gandhi Age/Sex: 24/F Location: [facility] Status: Signed Intake Vital Signs 08/05/24 13:48 11/16/24 10:56 Height 5 ft 3 in 5 ft 3 in Intake Visit Reasons: Back pain Chief Complaint: Back pain Is patient in pain?: Yes (Neck, UBP) Pain scale (1-10): 4 Allergies Cephalosporins Allergy (Mild, Verified 12/03/24 16:35) Rash Medications ???Medication ???Instructions ???Recorded ???Confirmed ???Type triamcinolone acetonide 0.5 % 1 applic topical DAILY PRN rash 12/03/24 Rx topical cream #15 grams [facility] Medical History Fatigue Anxiety and depression Frequent headaches Surgical History S/P wisdom tooth extraction Family History Grandmother Hypertension Grandfather Diabetes Social History adopted: No household members: family current occupational status: employed 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 Pt. states she is experiencing neck pain and stiffness that extends down into her traps bilaterally and across her shoulder blades. She rates her pain 3/10 and states her neck is tense which continues to cause headaches. Today she complains of headache at the base of her skull. A few weeks ago she had an episode of mid back pain where she felt that it needed to crack but couldn't. Her pain is exacerbated by sitting for long periods at a computer at work. She treats her pain at home with heat. Her LBP has been mild and improving. She denies new injury, numbness, tingling or radiculopathy. She reports chiropractic adjustments are helpful in relieving her pain and discomfort. Location: neck/back Duration: intermittent Aggravating or associated factors: sitting, answering phones,ADLs Relieving factors: chiro Pain Quality: aching and dull Exam Musc General: Yes normal posture, normal gait, joint tenderness and decreased range of motion; No muscle weakness Cervical Spine: Yes normal cervical lordosis, Yes cervical muscular tenderness bilateral diffuse , Yes cervical spasm right upper intrinsics, bilateral lower trapezius and paracervical muscles and Ye s misalignment misalignment: C2, C5, C6 and C7 Thoracic/Lumber: Yes thoracic and lumbar spine normal to inspection, Yes paraspinal tenderness bilaterally in the upper thoracic, in the mid thoracic and in the lower lumbar and on the right greater than left (upper thoracic), Yes thoraco-lumbar spasm bilaterally (lumbar paraspinals ) in the mid lumbar and in the lower lumbar, on the right greater than left (trap) and on the left greater than right (glute medius) and Yes misalignment T1, T2, T7, T8, L3, L4 and LIL Office Procedures Procedures - Chiropractic Procedures Manipulation: Cervical C2 and C6, Lumbar L3, Thoracic T2 and Pelvis LIL Manipulation: 3-4 regions Traction, Mechanical: Yes Hot and/or cold packs: Yes Patient Response: positive Assessment and Plan Assessment and Plan (1) Back pain: Qualifiers: Back pain location: low back pain Chronicity: acute Back pain laterality: bilateral Sciatica presence: without sciatica Qualified Code(s): M54.50 - Low back pain, unspecified (2) Segmental and somatic dysfunction of cervical region: Status: Acute (3) Segmental and somatic dysfunction of lumbar region: Status: Acute (4) Segmental and somatic dysfunction of thoracic region: Status: Acute (5) Segmental and somatic dysfunction of pelvic region: Status: Acute Orders: Orders Chiropractic Treatments 12/03/24 M54.9 - Dorsalgia, unspecified, M99.01 - Segmental and somatic dysfunction of cervical region, M99.02 - Segmental and somatic dysfunction of thoracic region, M99.03 - Segmental and somatic dysfunction of lumbar region, M99.05 - Segmental and somatic dysfunction of pelvic region Plan Patient was treated without incident. Continue care as needed. Plan Details Goals Barriers: Goals Decrease HAs Decrease sp (more content not included)... Normal [facility] Laboratory - Microbiology an d Antimicrobial susceptibilityOrdered By: Krystle Mason on 11-16-2024 SARS-CoV-2 (COVID-19) RNA YAMILET+probe Ql (Unsp spec) Not detected [facility] No Panel InformationOrdered By: Krystle Mason on 11-16-2024 POC Nasal Swab Influenza A,B Not detected [facility] POC Nasal Swab RSV Not detected [facility] Office Visit Reporton 2024 Office Visit Report [facility] [address] [place] [address] OFFICE VISIT Date of Service: 11/16/24 MR#: [id number] Acct: [id number] Patient: CECILIA CALDERON Rep #: [id number] : 2000 Provider: NAVJOT Mason Age/Sex: 24/F Location: [facility] Status: Signed Employer Purchased Covid Test Note: Patient here today for Covid Testing, requested by their Employer. Assessment and Plan Assessment and Plan Orders: Orders POC Cepheid Covid, FluAB, RSV Today Plan Details Goals Barriers: Goals Decrease HAs Decrease spasm Decrease pain Improve intersegmental motion Barriers pars defect L5 11/16/24 1154 Date Krystle Gay Signature: Date (if applicable) CC: Normal [facility] Urgent Care Visit Reporton 0 11-16-2024 Urgent Care Visit Report [facility] [address], [address] [place] [address] OFFICE VISIT Date of Service: 11/16/24 MR#: [id number] Acct: [id number] Name: CECILIA CALDERON Rep #: [id number] : 2000 Provider: NAVJOT Mason Age/Sex: 24/F Location: [facility] Status: Signed Intake Vital Signs 08/05/24 13:48 11/16/24 10:56 Height 5 ft 3 in 5 ft 3 in BP 124/60 H Blood Pressure Location Lt brachial Position Sitting Respiration 16 Pulse 113 H Pulse Source NIBP Temp 98.7 F Temp Source Oral Pulse Oximetry (%) 98 Oxygen Delivery Method room air Intake Visit Reasons: COUGH, LOW GRADE FEVER Chief Complaint: cough, fever, DAVIDSON, BA, N/V Employee'S Representative Required: No Is patient in pain?: No Allergies Cephalosporins Allergy (Mild, Verified 11/16/24 11:45) Rash Medications ???Medication ???Instructions ???Recorded ???Confirmed ???Type triamcinolone acetonide 0.5 % 1 applic topical DAILY PRN rash 10/14/24 Rx topical cream #15 grams Is last menstrual period known: No Post menopausal: No Patient : No Have you fallen in the past year?: No Nurse's Note: cough, fever, DAVIDSON, BA, N/V since last noc. PFSH Medical History Fatigue Anxiety and depression Frequent headaches Surgical History S/P wisdom tooth extraction Family History Grandmother Hypertension Grandfather Diabetes Social History adopted: No household members: family current occupational status: employed current occupation: [employer] secretary pets and animals: No sexually active: Yes Smoking Status: Never smoker alcohol intake: current alcohol intake frequency: holidays/special occasions only substance use type: does not use diet: lactose free caffeine: Yes (1) Type: coffee and tea frequency: 3-4 times per week seatbelt use: always do you feel safe at home: Yes HPI HPI Chief Complaint: cough, fever, DAVIDSON, BA, N/V Details: CECILIA CALDERON, is a 24 F who presents to the office today for cold sx -sx started last weekend- cough last weekend- improved on cough medication- last night - severe cough- dry cough- no sputum- a little mucous this morning -no congestion, runny nose, no ST, no sob, ear pain or facial pain -+ myalgias -temp this morning at 1030- 100.3 -tried so far Delysym cough syrup- nothing else ROS Const Constitutional: Positive for other (ROS negative x6 except what was placed in HPI) Exam Const General: cooperative, comfortable and no acute distress Orientation: alert, awake and oriented x3 HENMT Head: normal to inspection and normocephalic Ears: hearing grossly normal bilaterally, external ears normal and TM's normal bilaterally Nose: external nose normal and other (+ congestion and rhinorrhea) Face and sinus: normal facial exam, sinuses nontender and face symmetric Mouth: oral mucosae normal, lip normal, tongue normal, oropharynx normal and moist mucous membranes Throat: posterior oropharynx normal, tonsils normal, uvula midline and postnasal drainage Neck Neck: normal visual inspection, full ROM and no lymphadenopathy Resp Effort Inspection: normal respiratory effort, able to speak in complete sentences and symmetric chest movement Auscultation: Bilateral: Clear to Auscultation, Left: Clear to Auscultation and Right: Clear to Auscultation Cardio Rate: regular rate Rhythm: regular rhythm Heart Sounds: S1 normal and S2 normal GI Auscultation: normal bowel sounds Palpation: soft Skin General: no rashes or lesions noted and turgor normal Neuro General: patient alert, patient awake and patient oriented x3 Cognition: normal cognition Speech: speech normal Psych Appearance: grossly normal Mental Status: mental status grossly normal Attitude: cooperative Thought Process: normal Thought Content: normal Coding Level of Care Code Off vis,est,level 3 Diagnoses Acute cough R05.1 Cough type: acute Nasal congestion R09.81 Rhinorrhea J34.89 PND (post-nasal drip) R09.82 Assessment and Plan Assessment and Plan (1) Cough: Status: Acute Qualifiers: Cough type: acute Qualified Code(s): R05.1 - Acute cough Plan: -Warm salt water gargles, warm tea with honey, increase fluids, saline nasal spray 2 squirts each nostril every 2 hours as needed, Flonase nasal spray 1 squirt once a day, cetirizine (Zyrtec) one daily, cool mist humidifier, Tylenol and or ibuprofen as needed for fever or discomfort. Please follow up with your Primary Care Physician for ongoing chronic problems. If symptoms change or worsen, please present to Emergency Room for further evaluation 1 (more content not included)... Normal [facility] Chiropractic Reporton 2024 Chiropractic Report [facility] [address] [place] [address] OFFICE VISIT Date of Service: 10/14/24 MR#: [id number] Acct: [id number] Name: CECILIA CALDERON Rep #: [id number] : 2000 Provider: LYUBOV Gandhi Age/Sex: 24/F [place] [facility] [place]: Signed Intake Vital Signs 08/05/24 13:48 Height 5 ft 3 in Weight: 198 lb 4 oz BMI 35.1 BP 116/64 Blood Pressure Location Lt brachial Position Sitting Respiration 12 Pulse 105 H Pulse Source Monitor Temp 97.5 F L Temp Source Temporal Pulse Oximetry (%) 97 Oxygen Delivery Method room air Intake Visit Reasons: Back pain Chief Complaint: neck, upper back discomfort Is patient in pain?: Yes (neck, upper back ) Pain scale (1-10): 3 Allergies Cephalosporins Allergy (Mild, Verified 10/14/24 16:35) Rash Medications ???Medication ???Instructions ???Recorded ???Confirmed ???Type triamcinolone acetonide 0.5 % 1 applic topical DAILY PRN rash 10/14/24 Rx topical cream #15 grams PFS Medical History Fatigue Anxiety and depression Frequent headaches Surgical History S/P wisdom tooth extraction Family History Grandmother Hypertension Grandfather Diabetes Social History adopted: No household members: family current occupational status: employed current occupation: [employer] secretary pets and animals: No sexually active: Yes Smoking Status: Never smoker alcohol intake: current alcohol intake frequency: holidays/special occasions only substance use type: does not use diet: lactose free caffeine: Yes (1) Type: coffee and tea frequency: 3-4 times per week seatbelt use: always do you feel safe at home: Yes HPI Back pain Chief Complaint: neck upper and low back discomfort Visit Number: 2 Details: Cecilia Calderon a 24 year old female is here to follow up with neck, upper back pain. Pt. states she is experiencing neck and upper back tightness that extends across her shoulder blades and bilateral traps. She rates her pain 3/10 and states her neck is tense which continues to cause headaches. Her pain is exacerbated by sitting for long periods at a computer at work. She treats her pain at home with heat. Her LBP has been mild and improving. She denies new injury, numbness, tingling or radiculopathy. She reports chiropractic adjustments are helpful in relieving her pain and discomfort. Location: neck/back Duration: intermittent Aggravating or associated factors: sitting, answering phones,ADLs Relieving factors: chiro Pain Quality: aching and dull Exam Musc General: Yes normal posture, normal gait, joint tenderness and decreased range of motion; No muscle weakness Cervical Spine: Yes normal cervical lordosis, Yes cervical muscular tenderness bilateral diffuse , Yes cervical spasm right upper intrinsics, bilateral lower trapezius and paracervical muscles and Yes misalignment misalignment: C2, C5, C6 and C7 Thoracic/Lumber: Yes thoracic and lumbar spine normal to inspection, Yes paraspinal tenderness bilaterally in the upper thoracic, in the mid thoracic and in the lower lumbar and on the right greater than left (upper thoracic), Yes thoraco-lumbar spasm bilaterally (lumbar paraspinals ) in the mid lumbar and in the lower lumbar, on the right greater than left (trap) and on the left greater than right (glute medius) and Yes misalignment T1, T2, T7, T8, L3, L4 and LIL Office Procedures Procedures - Chiropractic Procedures Manipulation: Cervical C2 and C6, Lumbar L3, Thoracic T2 and Pelvis LIL Manipulation: 3-4 regions Electronic Stimulation: Yes Electrical Stimulation: Cervical 15 mins (12) mA Therapy Performed by:: Barbra Mark Traction, Mechanical: Yes Patient Response: positive Assessment and Plan Assessment and Plan (1) Back pain: Qualifiers: Back pain location: thoracic back pain Chronicity: acute Back pain laterality: bilateral Qualified Code(s): M54.6 - Pain in thoracic spine (2) Segmental and somatic dysfunction of cervical region: Status: Acute (3) Segmental and somatic dysfunction of lumbar region: Status: Acute (4) Segmental and somatic dysfunction of thoracic region: Status: Acute (5) Segmental and somatic dysfunction of pelvic region: Status: Acute Orders: Orders Chiropractic Treatments 10/14/24 M99.01 - Segmental and somatic dysfunction of cervical region, M99.02 - Segmental and somatic dysfunction of thoracic region, M99.03 - Segmental and somatic dysfunction of lumbar region, M99.05 - Segmental and somatic dysfunction of pelvic region Plan Patient was treat (more content not included)... Normal [facility] Urine Cultureon 09-21-2024 URC Below infection level. Mixed Gram Pos Gram Neg Org [place] Count <1000 MIXC Mixed contaminants. Submit a new specimen if indicated. Normal [facility] Comment on above: Performed By: #### L 400.0001, M100.2200 ####[facility] [address] [place], [address] Bilirubin Test strip Ql (U)O rdered By: Juan Pablo Nunes on 09-19-2024 Bilirubin Ql (U) Negative Negative [facility] Ketones Test strip Ql (U)Ord ered By: Jua nPablo Nunes on 09-19-2024 Ketones Ql (U) Negative Negative [facility] Microscopic analysis of urin e for red blood cells (RBC)Ordered By: Juan Pablo Nunes on 09-19-2024 Microscopic analysis of urine for red blood cells (RBC) 0-5 SEEN /hpf 0-5 [facility] Mucus LM Ql (Urine sed)Order ed By: Juan Pablo Nunes on 09-19-2024 Mucus Ql (Urine sed) 1+ /hpf [facility] Nitrite Test strip Ql (U)Ord ered By: Juan Pablo Nunes on 09-19-2024 Nitrite Ql (U) Negative Negative [facility] Protein Test strip Ql (U)Ord ered By: Juan Pablo Nunes on 09-19-2024 Protein Ql (U) 15 mg/dl High Negative [facility] Squamous epithelial cells de tection in urine sediment by light microscopyOrdered By: Juan Pablo Nunes on 09-19-2024 Epithelial cells.squamous LM Ql (Urine sed) 10-25 SEEN /hpf 5-10 [facility] Urinalysis, Completeon 09-19 BACTERIA 3+ /hpf Normal None Seen [facility] Comment on above: Order Comment: GEORGE CTOR TO SPECIFY Performed By: #### L 400.0001, ####[facility] [address] [place], [address] Mucus Ql (Urine sed) 1+ /hpf Normal [facility] Comment on above: Order Comment: GEORGE CTOR TO SPECIFY Performed By: #### L 400.0001, ####[facility] [address] [place], [address] RBC 0-5 SEEN Normal 0-5 [facility] Comment on above: Order Comment: GEORGE CTOR TO SPECIFY Performed By: #### L 400.0001, ####[facility] [address] [place], [address] EPI,SQUAMOUS 10-25 SEEN Normal 5-10 [facility] Comment on above: Order Comment: GEORGE CTOR TO SPECIFY Performed By: #### L 400.0001, ####[facility] [address] [place], [address] WBC 10-25 SEEN Normal 0-5 [facility] Comment on above: Order Comment: COLLE CTOR TO SPECIFY Performed By: #### L 400.0001, M1 ####[facility] [address] [place], [address] Urine clarityOrdered By: Salomon Nunes on 09-19-2024 Clarity (U) Sl. Cloudy Clear [facility] Urine color determinationOrd ered By: Juan Pablo Nunes on 09-19-2024 Color (U) Yellow Yellow [facility] Urine cultureOrdered By: Salomon Nunes on 09-19-2024 Bacteria identified Cx Nom (U) Mixed Gram Pos & Gram Neg Org Abnormal [facility] Urine glucose detectionOrder ed By: Juan Pablo Nunes on 09-19-2024 Glucose Ql (U) Normal mg/dl Normal [facility] Urine leukocyte esterase det ection by dipstickOrdered By: Juan Pablo Nunes on 09-19-2024 Leukocyte esterase Test strip Ql (U) 100 /ul High Negative [facility] Urine pHOrdered By: Juan Pablo Nunes on 09-19-2024 pH (U) 5.0 [pH] 5.0 - 8.0 [facility] Urine sediment bacteria coun t by microscopy (number/high power field)Ordered By: Juan Pablo Nunes on 09-19-2024 Bacteria LM.HPF (Urine sed) [#/Area] 3 /[HPF] None Seen [facility] Urine specific gravity measu rementOrdered By: Juan Pablo Nunes on 09-19-2024 Specific gravity (U) [Rel density] 1.025 1.002-1.030 [facility] Urine urobilinogen measureme ntOrdered By: Juan Pablo Nunes on 09-19-2024 Urobilinogen Ql (U) Normal mg/dl Normal [facility] White blood cell countOrdere d By: Juan Pablo Nunes on 09-19-2024 White blood cell count 10-25 SEEN /hpf 0-5 [facility] Chiropractic Reporton 2024 Chiropractic Report [facility] [address] [place] [id number] OFFICE VISIT Date of Service: 08/08/24 MR#: [id number] Acct: [id number] Name: CECILIA CALDERON Rep #: [id number] : 2000 Provider: LYUBOV Gandhi Age/Sex: 24/F Location[facility] Status: Signed Intake Vital Signs 06/17/24 13:17 08/05/24 13:48 Height 5 ft 3 in 5 ft 3 in Weight: 198 lb 4 oz BMI 35.1 BP 116/64 Blood Pressure Location Lt brachial Position Sitting Respiration 12 Pulse 105 H Pulse Source Monitor Temp 97.5 F L Temp Source Temporal Pulse Oximetry (%) 97 Oxygen Delivery Method room air Intake Visit Reasons: Back pain Chief Complaint: neck, upper, and low back discomfort Allergies Cephalosporins Allergy (Mild, Verified 08/08/24 10:52) Rash Medications ???Medication ???Instructions ???Recorded ???Confirmed ???Type triamcinolone acetonide 0.5 % 1 applic topical DAILY PRN rash 03/04/24 08/08/24 Rx topical cream #15 grams nitrofurantoin 100 mg PO Q12H 5 days #10 caps 08/05/24 08/08/24 Rx monohydrate/macrocr ystals 100 mg capsule (Macrobid) PFSH Medical History Fatigue Anxiety and depression Frequent headaches Surgical History S/P wisdom tooth extraction Family History Grandmother Hypertension Grandfather Diabetes Social History adopted: No household members: family current occupational status: employed 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 Pt. reports her last adjustment was helpful but her upper back soreness has returned. She complains of upper back soreness that extends across her shoulder blades and bilateral traps. She states her neck is tense which continues to cause headaches, but they haven't been as frequent since her last visit. She has not been experiencing tingling into her hands. She also complains of stiffness in her mid back and at times it feels as though it is stuck. Her pain is exacerbated by sitting for long periods and answering phones at work. She uses heat to treat her pain at home. She denies new injury, numbness, tingling or radiculopathy. Location: neck/back Duration: intermittent Aggravating or associated factors: sitting, answering phones Relieving factors: chiro Pain Quality: aching and dull Exam Musc General: Yes normal posture, normal gait, joint tenderness and decreased range of motion; No muscle weakness Cervical Spine: Yes normal cervical lordosis, Yes cervical muscular tenderness bilateral diffuse , Yes cervical spasm right upper intrinsics, bilateral lower trapezius and paracervical muscles and Yes misalignment misalignment: C2, C5, C6 and C7 Thoracic/Lumber: Yes thoracic and lumbar spine normal to inspection, Yes paraspinal tenderness (slightly improved) bilaterally in the lower thoracic and in the lower lumbar and on the right greater than left (upper thoracic), Yes thoraco-lumbar spasm bilaterally (lumbar paraspinals ) in the mid lumbar and in the lower lumbar, on the right greater than left (trap) and on the left greater than right (glute medius) and Yes misalignment T1, T2, T7, T8, L3, L4 and LIL Office Procedures Procedures - Chiropractic Procedures Manipulation: Cervical C2 and C6, Lumbar L3, Thoracic T2 and T7 and Pelvis LIL Manipulation: 3-4 regions Electronic Stimulation: Yes Electrical Stimulation: Cervical 15 mins (17) mA and Thoracic 15 mins (17) mA Therapy Performed by:: Sally Mendoza Traction, Mechanical: Yes Patient Response: positive Assessment and Plan Assessment and Plan (1) Segmental and somatic dysfunction of cervical region: Status: Acute (2) Segmental and somatic dysfunction of lumbar region: Status: Acute (3) Segmental and somatic dysfunction of thoracic region: Status: Acute (4) Segmental and somatic dysfunction of pelvic region: Status: Acute (5) 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 Normal [facility] Urinalysis, Completeon 08-05 CAST,WBC 0-5 SEEN Normal None Seen [facility] Comment on above: Order Comment: GEORGE CTOR TO SPECIFY Performed By: #### L 400.0001 ####[facility] [address] [place], [address] EPI,RENAL 0-5 SEEN Normal 0-5 [facility] Comment on above: Order Comment: GEORGE CTOR TO SPECIFY Performed By: #### L 400.0001 ####[facility] [address] [facility] [place] [address] BACTERIA 1+ /hpf Normal None Seen [facility] Comment on above: Order Comment: GEORGE CTOR TO SPECIFY Performed By: #### L 400.0001 ####[facility] [address] [place], [address] EPI,SQUAMOUS 0-5 SEEN Normal 5-10 [facility] Comment on above: Order Comment: GEORGE CTOR TO SPECIFY Performed By: #### L 400.0001 ####[facility] [address] [place], [address] RBC 5-10 SEEN Normal 0-5 [facility] Comment on above: Order Comment: GEORGE CTOR TO SPECIFY Performed By: #### L 400.0001 ####[facility] [address] [facility] [place] [address] WBC 10-25 SEEN Normal 0-5 [facility] Comment on above: Order Comment: GEORGE CTOR TO SPECIFY Performed By: #### L 400.0001 ####[facility] [address] [place], [address] Mucus Ql (Urine sed) 0 SEEN Normal [facility] Comment on above: Order Comment: COLLE CTOR TO SPECIFY Performed By: #### L 400.0001 ####[facility] [address] [place], [address] Internal Medicine Office Vis iton 08-02-2024 Internal Medicine Office Visit [facility] [address] [place] [address] OFFICE VISIT Date of Service: 08/05/24 MR#: [id number] Acct: [id number] Name: CECILIA CALDERON Rep #: [id number] : 2000 Provider: Dr. Kavita fontanez MD Age/Sex: 24/F Location[facility] Status: Signed Intake Vital Signs 06/17/24 13:17 08/05/24 13:48 Height 5 ft 3 in 5 ft 3 in Weight: 198 lb 4 oz BMI 35.1 BP 116/64 Blood Pressure Location Lt brachial Position Sitting Respiration 12 Pulse 105 H Pulse Source Monitor Temp 97.5 F L Temp Source Temporal Pulse Oximetry (%) 97 Oxygen Delivery Method room air Intake Visit Reasons: EST NEW PT - FORMER [facility] PT Chief Complaint: Possible UTI Employee'S Representative Required: No Accompanied by: Self Is patient in pain?: No Allergies Cephalosporins Allergy (Mild, Verified 08/05/24 13:47) Rash Medications ???Medication ???Instructions ???Recorded ???Confirmed ???Type triamcinolone acetonide 0.5 % 1 applic topical DAILY PRN rash 03/04/24 08/05/24 Rx topical cream #15 grams Have you fallen in the past year?: No PFSH Medical History (Updated 08/05/24 @ 14:[address] Kavita Del Valle MD) Fatigue Anxiety and depression Frequent headaches Surgical History S/P wisdom tooth extraction Family History (Updated 08/05/24 @ 14:[address] Kavita Del Valle MD) Grandmother Hypertension Grandfather Diabetes Social History (Updated 08/05/24 @ 14:[address] 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 She was seeing Rhonda Abarca DNP and last saw her in February. She is not due for any routine blood work or screening. She doesn't want any COVID vaccines. She doesn't smoke and doesn't need any refills She reports she is eating healthy and staying active. The patient has a history of migraines and chronic headaches. She doesn't take any medications for them regularly. She was getting acupuncture and cupping, which helped. She reports she hasn't been recently, however, due to costs. She has been seeing a chiropractor which helps a little, but notes that it isn't as effective as the acupuncture. She reports if she gets a bad headache, she will take excedrin migraine or dual action, which helps some. She reports she will get headaches around at least once per week, but states they are mostly tension type. She feels that what she is doing is adequate at this time. At her last office visit, she complained of bilateral foot pain. She reports that it has been intermittent. She did get orthotics which have helped some. She reports exercising does seem to aggravate it. She does have some home exercises which she hasn't yet tried, and feels that may be helpful. The patient has been following with a chiropractor for her back pain. She reports that it has been helpful. The patient thinks she may have a UTI. She reports her symptoms started last Monday with urinary frequency and pressure. She denies any dysuria. She has tried taking D-mannose which has helped a little as well as AZO which helped a little. She reports she is menstruating, so isn't sure if she had any hematuria. She denies any associated abdominal pain or flank pain. She hasn't had any fevers, nausea or vomiting. She reports her bowels are moving normally. She admits she doesn't drink enough water. She drinks about a bottle of water per day. She doesn't get UTIs often stating her last was a few years ago and reports her symptoms are similar. ROS Const Constitutional: Positive for headache(s) and weight change (35 pound weight gain); No body ache, excessive sweating, fatigue, fever(s), frequent falls, snoring, weakness, sleep problems or change in appetite Eyes Eyes: No blurry vision, change in vision, eye pain or Light sensitivity ENT ENT: Positive for headache(s); No abnormal hearing, ear or mastoid pain, tinnitus, nasal congestion, neck pain or sore throat Resp Respiratory: No cough, shortness of breath, snoring or wheezing Cardio Cardiology: Positive for lightheadedness (occasional, position changes); No chest pain at rest, chest pain with exertion, excessive sweating, shortness of breath, dyspnea on exertion, orthopnea, palpitations or othe (more content not included)... Normal [facility] Chiropractic Reporton 2023 Chiropractic Report [facility] [address] [place] [address] OFFICE VISIT Date of Service: 06/17/24 MR#: [id number] Acct: [id number] Name: CECILIA CALDERON Rep #: [id number] : 2000 Provider: LYUBOV Gandhi Age/Sex: 23/F Location: [facility] Status: Signed Intake Vital Signs 03/04/24 15:42 05/03/24 08:22 05/23/24 15:28 06/17/24 13:17 Height 5 ft 4 in 5 ft 3 in 5 ft 3 in 5 ft 3 in Weight: 193 lb BMI 34.2 BP 106/70 Blood Pressure Location Lt brachial Position Sitting Intake Visit Reasons: EST CARE Chief Complaint: Back pain Allergies Cephalosporins Allergy (Mild, Verified 06/17/24 12:57) Rash Medications ???Medication ???Instructions ???Recorded ???Confirmed ???Type triamcinolone acetonide 0.5 % 1 applic topical DAILY PRN rash 03/04/24 06/17/24 Rx topical cream #15 grams FOR[facility]LY [facility], [facility] Medical History (Updated 06/17/24 @ 14:[address] Paris Cárdenas, LYUBOV) Frequent headaches Surgical History S/P wisdom tooth extraction Family History Other Diabetes Hypertension Social History adopted: No household members: none current occupational status: employed current occupation: [employer] pets and animals: No sexually active: Yes Smoking Status: Never smoker alcohol intake: current alcohol intake frequency: holidays/special occasions only substance use type: does not use diet: lactose free caffeine: Yes (1) Type: coffee and tea frequency: 3-4 times per week seatbelt use: always do you feel safe at home: Yes [facility] Chief Complaint: Back pain Visit Number: 1 Details: Cecilia Calderon a 23 year old female presents for initial evaluation of back pain. She reports a lengthy history over ten years of neck and back pain that started after running into a close line at her grandmas house as a child. She complains of neck pain and tension that is equal bilaterally. The tension in her neck has been causing headaches every other day and recently she has been experiencing migraines. The neck pain radiates into her traps bilaterally and she reports limited ROM in her neck. She does occasionally experience tingling into her hands bilaterally depending on the position she is sitting in. She also complains of stiffness in her mid back and at times it feels as though it is stuck. Her pain is exacerbated by sitting for long periods and answering phones at work. At home she uses heat to treat her pain. She has seen a chiropractor in the last and reports it was helpful in alleviating her discomfort. She stated that previous DC identified a fracture in her back. Location: Neck/Back Duration: constant Aggravating or associated factors: sitting for long periods, answering phones Relieving factors: chiro Pain Quality: aching and dull Exam Musc General: Yes normal posture, normal gait, joint tenderness and decreased range of motion; No muscle weakness Cervical Spine: Yes normal cervical lordosis, Yes cervical muscular tenderness bilateral diffuse , Yes pain with cervical ROM with lateral flexion to right and with lateral flexion to left, Yes cervical spasm right upper intrinsics, bilateral lower trapezius and paracervical muscles and Yes misalignment misalignment: C2, C5, C6 and C7 Thoracic/Lumber: Yes thoracic and lumbar spine normal to inspection, Yes Lasegue's sign negative, Yes straight leg raise negative bilaterally, Yes pain with thoraco-lumbar ROM with rotation to the right and with rotation to the left, Yes paraspinal tenderness bilaterally in the lower thoracic and in the lower lumbar and on the right greater than left (upper thoracic), No thoraco-lumbar ROM limited, No scoliosis, Yes thoraco-lumbar spasm bilaterally (lumbar paraspinals ) in the mid lumbar and in the lower lumbar, on the right greater than left (trap) and on the left greater than right (glute medius) and Yes misalignment T1, T2, T7, T8, L3, L4 and LIL Neuro General: patient alert, patient awake, patient oriented x3, normal light touch, pain and propioception and no focal motor deficits Cranial Nerves: CN's II-XI intact bilaterally Cognition: normal cognition Speech: speech normal Gait: normal gait Motor: muscle tone normal throughout Sensory Exam: no sensory deficits noted Ortho Test CERVICAL Compression pain: Negative Distraction pain: relief Aries's pain: Negative Valsalvas: Negative Shoulder depression pain: Right THORACIC Kemps: Negative Jason: Negative LUMBAR Kemps: Negative Valsalvas: Negative SLR: Negative Iliac Compression: Negative Office Procedures Procedures - Chiropractic Procedures Manipulation: Cervical C2 and C6, Lumb (more content not included)... Normal [facility] Radiology Reporton 4 Radiology Report [facility] [address] [place] [address] 06/17/24 1446 MR#: [id number] Acct: [id number] Name: CECILIA CALDERON Rep #: [id number] : 2000 23 From: Paris Cárdenas D.C. PCP: Rhonda Abarca NP-C Status:DEP AMB Location: [facility] X-Ray Report Impression Impression: Patients Name: CECILIA CALDERON : 2000 Views Submitted: a routine cervical series was accomplished on 06/17/24 at [facility].In the cervical series, the AP view revealed right spinous rotation from C2-C7, with left lateral translation of the head. The neutral lateral view demonstrated a mildly hypolordotic cervical spine. There is anterior head/spine placement. The disc spaces are well preserved. Soft tissue structures are unremarkable. The APOM view revealed slightly reduced atlantoaxial joint spaces, with right posterior rotation of the C1 segment, and right spinous rotation at C2. No indication of fracture or instability. IMPRESSION: 1. Normal cervical spine xray, with misalignment as noted above. Dictated by Performing Provider: Paris Cárdenas Coding Level of Care Code Spine Cervical 2-3 views 06/18/24825 Date Paris Cárdenas D.C. Signed Normal [facility] Radiology Report [facility] [address] [place] [address] 06/17/24 1446 MR#: [id number] Acct: [id number] Name: CECILIA CALDERON Rep #: [id number] : 2000 23 From: Paris Cárdenas D.C. PCP: Rhonda Abarca ESCALATOR OPERATOR-C Status:DEP [facility] Location: [facility] X-Ray Report Impression Impression: Patients Name: CECILIA CALDERON : 2000 Views Submitted: a routine lumbosacral series was accomplished on 06/17/24 at [facility]. The lumbar series reveals in the AP view a right spinous process rotation from L3-L5 and left spinous rotation from T12-L2. There is a 6.3mm leg length inequality on the left. There is posterior rotation of the left susan on sacrum. Sacrum is inferior on the left. There is a pars defect at L5, most visible on the left. The lateral lumbar view demonstrates a normal lordotic lumbar spine curve. The disc spaces are within normal limits for the patient???s age. No evidence of anterolisthesis. Soft tissue structures are unremarkable. Oblique views revealed left pars defect at L5 on the Left. It appears to be chronic or congenital in nature. No instability to note. IMPRESSION: 1. L5 pars defect. Dictated by Performing Provider: Paris Cárdenas Coding Level of Care Code Spine Lumbarsacral 4 views 06/18/24 0831 Date Paris Cárdenas D.C. Signed [facility] CNOVon 02-27-2023 CNOV Office Visit (OBGYWM) ---- CECILIA CALDERON ([id number]) 1 F Date Time Provider Department 02/27/23 3:20 PM ROXANE FORMAN OBJHONNYWCash During your visit today, we recorded the following information about you: Blood pressure Weight Height Last Period 122/80 77.4 kg 1.613 m 02/25/23 Roxane Forman MD 02/27/2023 4:49 PM Signed Cecilia Josue Yumiko is a 22 year old female who presents for discussion regarding contraception options. Pt reports has been on ocps for year. Pt states got a new job and can't remember to take it and does not desire at this time. Started pills in HS for dysmenorrhea. Pt reports overall likes the pill and has no SE. Pt has no other concerns today. OB History T0 L0 SAB0 IAB0 Ectopic0 Multiple0 Live Births0 Account Advisor History LMP: 02/25/2023, Having periods Age at Menarche: Age at First : Age at Menopause: Account Advisor History Comments: Sexual Activity: Not Currently; No partner data on record Contraception: No contraception data on record PAST MEDICAL HISTORY Diagnosis Date Menarche Age 11 PMH - PAST MEDICAL HISTORY OF right shoulder dislocated at birht PAST SURGICAL HISTORY Procedure Laterality Date TOOTH EXTRACTION 01/2022 wisdom teeth FAMILY HISTORY Problem Relation Age of Onset None Other Social History Tobacco Use Smoking status: Never Smokeless tobacco: Never Vaping Use Vaping Use: Never used Substance Use Topics Alcohol use: Yes Comment: occasionally Drug use: No Current Outpatient Medications Medication Sig ESTARYLLA 0.25-35 mg-mcg per tablet TAKE 1 TABLET BY MOUTH ONE TIME DAILY -TAKE ACTIVE TABLETS ONLY. START A NEW PACK EVERY 3 WEEKS DIRECTED (Patient not taking: Reported on 02/27/2023) triamcinolone acetonide 0.1 % cream Apply 1 application to affected area twice daily as needed. TO AFFECTED AREA. (Patient not taking: Reported on 02/27/2023) No current facility-administer ed medications for this visit. Allergies As of Date: 02/27/2023 Allergen Noted Reaction CEPHALOSPORINS 11/21/2013 Rash Fully Assessed 02/27/2023 REVIEW OF SYSTEMS Abdomen: no pain Expanded ROS: no fever Allergies and current medication updated:Yes EXAM: BP 122/80 Ht 5' 3.5 (1.61m) Wt 170 lb 9.6 oz (77.4kg) LMP 02/25/2023 BMI 29.74 kg/(m2). GENERAL: pleasant, female in no apparent distress HEENT: Normocephalic and atraumatic NECK: full range of motion DERMATOLOGY: Normal and non-icteric NEURO: alert and oriented x3,exam grossly non-focal ASSESSMENT AND PLAN: Encounter Diagnosis ICD-10-CM 1. Dysmenorrhea N94.6 2. Encounter for other general counseling or advice on contraception Z30.09 3. Encounter for initial prescription of contraceptive pills Z30.011 4. All options including long-acting reversible contraceptive as well as patch and rings. After discussion of each patient would like to stick with the oral contraceptive pills. We discussed ways to remember to take them. Discussed that if she still has difficulty remembering to take them she can call the office and I will be happy to prescribe other forms. All questions were answered. Patient was happy with the plan. Patient will follow-up in the office in about 4 weeks for a routine annual exam with a Pap. I spent a total of 20 minutes on the date of the service which included preparing to see the patient, [id number] patient care, completing clinical documentation, obtaining and/or reviewing separately obtained history, performing a medically appropriate examination, and counseling and educating the patient/family/daycare assistant. Roxane Whittaker MD Referring Provider: SELF [[id number]] Allergies As of Date: 02/27/2023 Noted Allergy Reaction CEPHALOSPORINS 11/21/2013 2 - Rash Date Reviewed: 02/27/2023 Reviewed by: Renetta Conner Ma - Fully Assessed Reason for Visit: Discussion [813] Cmt: Contraception Primary Visit Diagnosis:Dysmenorr hea [N94.6] Other Visit Diagnoses:Encounter for other general counseling or advice on contraception [Z30.09] Encounter for initial prescription of contraceptive pills [Z30.011] Order(s):norgestima te 0.25 mg-ethinyl estradiol 35 mcg (ESTARYLLA) 0.25-35 mg-mcg per tabletTAKE 1 TABLET BY MOUTH ONE TIME DAILY -TAKE ACTIVE TABLETS ONLY. START A NEW PACK EVERY 3 WEEKS DIRECTEDDisp: 112 tabletRfl: 4 Prescriptions as of 02/27/2023 - norgestimate 0.25 mg-ethinyl estradiol 35 mcg (ESTARYLLA) 0.25-35 mg-mcg per tablet TAKE 1 TABLET BY MOUTH ONE TIME DAILY -TAKE ACTIVE TABLETS ONLY. START A NEW PACK EVERY 3 WEEKS DIRECTED - triamcinolone acetonide 0.1 % cream Apply 1 application to affected area twice daily as needed. TO AFFECTED AREA. Meds Comments as of 02/26/2008: Reviewed current med list, 02/26/2008. Cesia Samuels SAW CLEANER Reviewed current med list, 11/01/2007. Cesia Samuels (more content not included)... Normal [facility] Vital Signs Date Time Vital Sign Value Performing Clinician Garciai lorenzo 03-04-2025 11:20-0400 Body temperature 98.5 [degF] Dr. Kavita Del Valle MD Work Phone: [facility] 03-04-2025 11:20-0400 Diastolic blood pressure 66 mm[Hg] Dr. Kavita Del Valle MD Work Phone: [facility] 03-04-2025 11:20-0400 Heart rate 94 /min Dr. Kavita Del Valle MD Work Phone: [facility] 03-04-2025 11:20-0400 Respiratory rate 16 /min Dr. Kavita Del Valle MD Work Phone: [facility] 03-04-2025 11:20-0400 SaO2% (BldA) [Mass fraction] 97 % Dr. Kavita Del Valle MD Work Phone: [facility] 03-04-2025 11:20-0400 Systolic blood pressure 110 mm[Hg] Dr. Kavita Del Valle MD Work Phone: [facility] 11-16-2024 10:56-0400 Body height 160.[address] Kavita Del Valle MD Work Phone: [facility] 11-16-2024 10:56-0400 Body temperature 98.7 [degF] Dr. Kavita Del Valle MD Work Phone: [facility] 11-16-2024 10:56-0400 Diastolic blood pressure 60 mm[Hg] Dr. Kavita Del Valle MD Work Phone: [facility] 11-16-2024 10:56-0400 Heart rate 113 /min Dr. Kavita Del Valle MD Work Phone: [facility] 11-16-2024 10:56-0400 Respiratory rate 16 /min Dr. Kavita Del Valle MD Work Phone: [facility] 11-16-2024 10:56-0400 SaO2% (BldA) [Mass fraction] 98 % Dr. Kavita Del Valle MD Work Phone: [facility] 11-16-2024 10:56-0400 Systolic blood pressure 124 mm[Hg] Dr. Kavita Del Valle MD Work Phone: [facility] 02-27-2023 15:18-0400 Body height 161.3 cm Roxane Gracia MD Work Phone: [facility] 02-27-2023 15:18-0400 Body weight 77.38 kg Roxane Gracia MD Work Phone: [facility] 02-27-2023 15:18-0400 Diastolic blood pressure 80 mm[Hg] Roxane Gracia MD Work Phone: [facility] 02-27-2023 15:18-0400 Systolic blood pressure 122 mm[Hg] Roxane Gracia MD Work Phone: [facility] Encounters Encounter Date Encounter Type Care Provider Facility Start: 06-11-2025 ambulatory Maryse Yoo Facility :[facility] Start: 06-10-2025 End: 06-10-2025 ambulatory Kavita Del Valle Facility:[facility] Start: 05-06-2025 End: 05-06-[address] Paris Cárdenas DC [facility] Work Phone: Start: 05-06-2025 End: 05-06-[address] Kavita Del Valle MD Work Phone: [facility][1] [facility] Start: 04-07-2025 End: 04-07-[address] Paris Cárdenas DC -[facility] Work Phone: Start: 04-07-2025 End: 04-07-[address] Kavita Del Valle MD Work Phone: [facility][1[facility] Start: 03-11-2025 End: 03-11-[address] Paris Cárdenas DC -[facility] Work Phone: Start: 03-11-2025 End: 03-11-[address] Kavita Del Valle MD Work Phone: [facility][1[facility] Start: 03-04-2025 End: 03-04-2025 Patient encounter procedure Valentino Anderson [facility] Work Phone: Start: 03-04-2025 End: 03-04-[address] Kavita Del Valle MD Work Phone: [facility] Start: 02-18-2025 End: 02-18-[address] Paris Cárdenas DC [facility] Work Phone: Start: 02-18-2025 End: 02-18-[address] Kavita Del Valle MD Work Phone: [facility][1[facility] Start: 01-16-2025 End: 01-16-[address] Paris Cárdenas DC [facility] Work Phone: Start: 01-16-2025 End: 01-16-[address] Kavita Del Valle MD Work Phone: [facility] Work Phone: Start: 12-03-2024 End: 12-03-[address] Paris Cárdenas DC -[facility] Work Phone: Start: 12-03-2024 End: 12-03-2024 ambulatory Kavita Del Valle Facility:[facility] Start: 11-16-2024 End: 11-16-2024 Patient encounter procedure Krystle Mason ESCALATOR OPERATOR-C -[facility] Work Phone: Start: 11-16-2024 End: 11-16-2024 ambulatory Kavita Del Valle Facility:[facility] Start: 10-14-2024 End: 10-14-[address] Paris Cárdenas DC [facility] Work Phone: Start: 10-14-2024 End: 10-14-2024 ambulatory Kavita Del Valle Facility:[facility] Start: 09-19-2024 End: 09-19-2024 Patient encounter procedure Juan Pablo Nunes PA -[facility] Work Phone: Start: 09-19-2024 End: 09-19-2024 ambulatory Kavita Del Valle Facility:[facility] Start: 08-08-2024 End: 08-08-2024 ambulatory Rhonda Simonullo Facility:[facility] Start: 08-05-2024 End: 08-05-2024 ambulatory Rhonda Carro Facility:[facility] Start: 08-05-2024 End: 08-05-2024 ambulatory Kavita Del Valle Facility:[facility] Start: 07-02-2024 ambulatory Rhondagina Simonullo Facility: [facility] Start: 06-18-2024 ambulatory Rhondagina Simonullo Facility: [facility] Start: 06-17-2024 End: 06-17-2024 ambulatory Rhonda Ferullo Facility:[facility] Start: 03-05-[address] Corrie Del Valle MD Work Phone: [facility] Start: 02-27-2023 End: 02-27-2023 ambulatory [facility] Facility:[facility] Start: 02-27-2023 End: 02-27-2023 Patient encounter procedure Roxane Gracia MD Work Phone: OB/Gynecology Comment on above: Dysmenorrhea (Primar y Dx); Encounter for other general counseling or advice on contraception; Encounter for initial prescription of contraceptive pills Start: 11-15-2021 Refill Maranda Roy APRN.CNP Work Phone: OB/Gynecology Comment on above: Refill Request Procedures Date Procedure Procedure Detail Performing Clinician Start: 09-19-[address] Nestor Del Valle MD Work Phone: Start: 09-19-2024 Urnls dip stick/tabl et reagent auto microscopy Dr. Kavita Del Valle MD Work Phone: Plan of Treatment Date Care Activity Detail Author Start: 11-19-2023 Urine microalbumin profile DTAP,TDAP,TD (7 - Td or Tdap) [facility] Start: 03-31-2023 Influenza vaccination INFLUENZA (#1) [facility] Start: 07-31-2022 DEPRESSION ASSESSMENT DEPRESSION ASSESSMENT [facility] Start: 03-31-2022 Influenza vaccination INFLUENZA (Season Ended) [facility] Start: 2021 PAP TESTING PAP TESTING [facility] Start: 2018 CHLAMYDIA SCREENING (18-24) CHLAMYDIA SCREENING (18-24) [facility] Start: 2018 GC (GONORRHEA) SCREENING (18-24) GC (GONORRHEA) SCREENING (18-24) [facility] Start: 2018 HEPATITIS C SCREENING HEPATITIS C SCREENING [facility] Start: 2018 HIV SCREENING HIV SCREENING [facility] Start: 2016 MENINGOCOCCAL B: Consider based on risk (1 of 2 - Patient Seeks Protection) MENINGOCOCCAL B: Consider based on risk (1 of 2 - Patient Seeks Protection) [facility] Start: 2014 PEDS TO ADULT TRANSITION ANNUAL ASSESSMENT PEDS TO ADULT TRANSITION ANNUAL ASSESSMENT [facility] Start: 2012 Adult depression screening assessment DEPRESSION SCREENING [facility] Start: 2012 PEDS TO ADULT TRANSITION INITIAL DISCUSSION PEDS TO ADULT TRANSITION INITIAL DISCUSSION [facility] Start: 2010 MENINGOCOCCAL B: Consider based on risk (1 of 2 - Risk Bexsero 2-dose series) MENINGOCOCCAL B: Consider based on risk (1 of 2 - Risk Bexsero 2-dose series) [facility] Start: 2005 COVID-19 VACCINE (1) COVID-19 VACCINE (1) [facility] Start: 01-24-2001 COVID-19 VACCINE (#1) COVID-19 VACCINE (#1) [facility] Chiropractic manipulation [facility] Immunizations Immunization Date Immunization Notes Care Provider [facility] 06-13-2024 influenza, seasonal, injectable, preservative free Dr. Kavita Del Valle MD Work Phone: [facility] 01-08-2024 tetanus toxoid, redu charla diphtheria toxoid, and acellular pertussis vaccine, adsorbed Dr. Kavita Del Valle MD Work Phone: [facility] 03-26-2018 meningococcal polysaccharide (groups A, C, Y and W-135) diphtheria toxoid conjugate vaccine (MCV4P) Maranda Roy DEATH SURVEYS CODER.BEHAVIORAL SCIENTIST Work Phone: [facility] 07-18-2014 human papilloma viru s vaccine, quadrivalent Maranda Roy DEATH SURVEYS CODER.BEHAVIORAL SCIENTIST Work Phone: [facility] 12-25-2013 human papilloma viru s vaccine, quadrivalent Maranda Manuela DEATH SURVEYS CODER.[facility] Work Phone: [facility] 12-25-2013 meningococcal polysaccharide (groups A, C, Y and W-135) diphtheria toxoid conjugate vaccine (MCV4P) Maranda Troy DEATH SURVEYS CODER.BEHAVIORAL SCIENTIST Work Phone: [facility] 12-25-2013 varicella virus vaccine Jairo e Troy DEATH SURVEYS CODER.BEHAVIORAL SCIENTIST Work Phone: [facility] 11-18-2013 tetanus toxoid, redu charla diphtheria toxoid, and acellular pertussis vaccine, adsorbed Maranda Manuela DEATH SURVEYS [employer].[facility] Work Phone: [facility] 06-09-2009 novel influenza-H1N1 -09, all formulations Maranda Troy DEATH SURVEYS [employer].[facility] Work Phone: [facility] 06-09-2009 novel influenza-H1N1 -09, preservative-free, injectable Dr. Kavita Del Valle MD Work Phone: [facility] 04-25-2009 influenza virus vacc ine, live, attenuated, for intranasal use Maranda Manuela DEATH SURVEYS [employer].[facility] Work Phone: [facility] Work Phone: 06-01-2007 influenza, injectabl e, quadrivalent, preservative free Dr. Kavita Del Valle MD Work Phone: [facility] 05-29-2006 influenza virus vacc ine, unspecified formulation Maranda Manuela DEATH SURVEYS CODER.BEHAVIORAL SCIENTIST Work Phone: [facility] Work Phone: 12-31-2005 diphtheria, tetanus toxoids and acellular pertussis vaccine Maranda Troy DEATH SURVEYS CODER.BEHAVIORAL SCIENTIST Work Phone: [facility] Work Phone: 12-31-2005 measles, mumps and rubella virus vaccine Maranda Manuela DEATH SURVEYS CODER.BEHAVIORAL SCIENTIST Work Phone: [facility] Work Phone: 12-31-2005 poliovirus vaccine, inactivated Maranda Manuela DEATH SURVEYS CODER.BEHAVIORAL SCIENTIST Work Phone: [facility] Work Phone: 06-25-2003 influenza virus vacc ine, unspecified formulation Maranda Troy DEATH SURVEYS CODER.BEHAVIORAL SCIENTIST Work Phone: [facility] Work Phone: 12-01-2001 diphtheria, tetanus toxoids and acellular pertussis vaccine Maranda Manuela DEATH SURVEYS CODER.BEHAVIORAL SCIENTIST Work Phone: [facility] Work Phone: 12-01-2001 haemophilus influenz ae type b vaccine, HbOC conjugate Maranda Manuela DEATH SURVEYS [employer] Work Phone: [facility] Work Phone: 12-01-2001 poliovirus vaccine, inactivated Maranda Troy DEATH SURVEYS [employer].[facility] Work Phone: [facility] Work Phone: 08-11-2001 measles, mumps and rubella virus vaccine Maranda Troy DEATH SURVEYS CODER.BEHAVIORAL SCIENTIST Work Phone: [facility] Work Phone: 08-11-2001 varicella virus vaccine Jairo e Manuela DEATH SURVEYS [employer].[facility] Work Phone: [facility] Work Phone: 07-28-2001 hepatitis B vaccine, pediatric or pediatric/adolescent dosage Maranda Troy DEATH SURVEYS CODER.BEHAVIORAL SCIENTIST Work Phone: [facility] Work Phone: 05-05-2001 hepatitis B vaccine, pediatric or pediatric/adolescent dosage Maranda Manuela DEATH SURVEYS CODER.BEHAVIORAL SCIENTIST Work Phone: [facility] Work Phone: 01-25-2001 diphtheria, tetanus toxoids and acellular pertussis vaccine Maranda Manuela DEATH SURVEYS CODER.BEHAVIORAL SCIENTIST Work Phone: [facility] Work Phone: 01-25-2001 haemophilus influenz ae type b vaccine, HbOC conjugate Maranda Troy DEATH SURVEYS CODER.BEHAVIORAL SCIENTIST Work Phone: [facility] Work Phone: 01-25-2001 pneumococcal conjuga te vaccine, 7 valent Maranda Troy DEATH SURVEYS [employer].[facility] Work Phone: [facility] Work Phone: 2000 diphtheria, tetanus toxoids and acellular pertussis vaccine Maranda Manuela DEATH SURVEYS [employer] Work Phone: [facility] Work Phone: 2000 haemophilus influenz ae type b vaccine, HbOC conjugate Maarnda Troy DEATH SURVEYS [employer]ER.[facility] Work Phone: [facility] Work Phone: 2000 pneumococcal conjuga te vaccine, 7 valent Maranda Troy DEATH SURVEYS [employer]ER.[facility] Work Phone: [facility] Work Phone: 2000 poliovirus vaccine, inactivated Maranda Manuela DEATH SURVEYS C[employer]ER.[facility] Work Phone: [facility] Work Phone: 2000 diphtheria, tetanus toxoids and acellular pertussis vaccine Maranda Manuela DEATH SURVEYS CODER.[facility] Work Phone: [facility] Work Phone: 2000 haemophilus influenz ae type b vaccine, HbOC conjugate Maranda Manuela DEATH SURVEYS C[employer]ER.[facility] Work Phone: [facility] Work Phone: 2000 pneumococcal conjuga te vaccine, 7 valent Maranda Troy DEATH SURVEYS [employer]ER.[facility] Work Phone: [facility] Work Phone: 2000 poliovirus vaccine, inactivated Maranda Troy DEATH SURVEYS [employer]ER[employer] Work Phone: [facility] Work Phone: 2000 hepatitis B vaccine, pediatric or pediatric/adolescent dosage Maranda Manuela DEATH SUR[employer]YS [employer].[facility] Work Phone: [facility] Work Phone: Payers Date Payer Category Payer Self-pay 2024 Unknown [id number] 2022 Unknown [employer] PPO [id number] 2022-Present [phone] [address] [place] [address] PPO [id number] 2022 Unknown [id number] 2021 Private Health Insurance [employer] OAP [id number] 2021-Present [phone] [address] [place] [address] Open Access [id number] Unknown [id number] 2.16.840.1.979049.3.579.2. 462 Unknown [id number] 2.16.840.1.366873.3.579.2. 462 Unknown [id number] 2.16.840.1.429634.3.579.2. 462 Unknown [id number] 2.16.840.1.885248.3.579.2. 462 Unknown [id number] 2.16.840.1.792272.3.579.2. 462 Unknown [id number] 2.16.840.1.761684.3.579.2. 462 Unknown [id number] 2.16.840.1.304962.3.579.2. 462 Unknown [id number] 2.16.840.1.177016.3.579.2. 462 Unknown [id number] 2.16.840.1.369297.3.579.2. 462 Unknown [id number] 2.16.840.1.222210.3.579.2. 462 Unknown [id number] 2.16.840.1.815254.3.579.2. 462 Unknown [id number] 2.16.840.1.225358.3.579.2. 462 Unknown [id number] 2.16.840.1.704038.3.579.2. 462 Unknown [id number] 2.16.840.1.954214.3.579.2. 462 Unknown [id number] 2.16.840.1.857015.3.579.2. 462 Unknown [id number] 2.16.840.1.153087.3.579.2. 462 Unknown [id number] 2.16.840.1.175905.3.579.2. 462 Unknown [id number] 2.16.840.1.042667.3.579.2. 462 Unknown [id number] 2.16.840.1.785854.3.579.2. 462 Unknown [id number] 2.16.840.1.942435.3.579.2. 462 Unknown [id number] 2.16.840.1.533677.3.579.2. 462 Social History Date Type Detail Facility Start: 02-27-2023 End: 11-16-2024 Tobacco smoking status NHIS Never smoked tobacco [facility] Start: 07-30-2020 Alcohol intake Current non-dr towel stretcher of alcohol (finding) [facility] Start: 2000 Sex Assigned At Female [facility] Start: 02-27-2023 Tobacco use and exposure Smokeless tobacco non-user [facility] Start: 02-27-2023 Alcohol intake Current drinke r of alcohol (finding) [facility] Start: 02-27-2023 History of Social function [facility] Start: 02-27-2023 Tobacco use panel [facility] (1-10 0), lower number is lower risk 72 [facility] Start: 02-27-2023 Alcohol Comment occasionally [facility] Start: 12-17-2018 Gender identity Identifies as female gender (finding) [facility] Start: 12-17-2018 Sexual orientation Heterosexual (jareth green) [facility] Goals Date Patient Goal Desired Activity /State Clinical Notes 11-15-2021 to 01-16-2025 Note Date & Type Note Facility 01-16-2025 Evaluation note Diagnosis Onset Date Resolution Neck pain acute January 16 4:17pm Segmental and somatic dysfunction of cervical region acute January 16, 2025 4:17pm Segmental and somatic dysfunction of lumbar region acute January 16, 2025 4:17pm Segmental and somatic dysfunction of pelvic region acute January 16, 2025 4:17pm Segmental and somatic dysfunction of thoracic region acute January 16, 2025 4:17pm Pars defect of lumbar spine chronic January 16, 2025 4:17pm Segmental and somatic dysfunction of cervical region acute February 18, 2025 3:55pm Segmental and somatic dysfunction of lumbar region acute February 18, 2025 3:55pm Segmental and somatic dysfunction of pelvic region acute February 18, 2025 3:55pm Segmental and somatic dysfunction of thoracic region acute February 18, 2025 3:55pm Pars defect of lumbar spine chronic February 18, 2025 3:55pm Segmental and somatic dysfunction of cervical region acute March 11 4:01pm Segmental and somatic dysfunction of lumbar region acute March 11 4:01pm Segmental and somatic dysfunction of pelvic region acute March 11 4:01pm Segmental and somatic dysfunction of thoracic region acute March 11 4:01pm Pars defect of lumbar spine chronic March 11 4:01pm Back pain noneactive March 11, 2 025 4:01pm Segmental and somatic dysfunction of cervical region acute April 07, 2 025 2:58pm Segmental and somatic dysfunction of lumbar region acute April 07, 2 025 2:58pm Segmental and somatic dysfunction of pelvic region acute April 07, 2 025 2:58pm Segmental and somatic dysfunction of thoracic region acute April 07, 2 025 2:58pm Back pain noneactive April 07, 2025 2:58pm [employer] Work Phone: 1(367) 988-313706-19-2025 Evaluation note* Diagnosis Onset Date Resolution Status Admit Date Neck pain acute January 16 4:17pm Segmental and somatic dysfunction of cervical region acute January 16, 2025 4:17pm Segmental and somatic dysfunction of lumbar region acute January 16, 2025 4:17pm Segmental and somatic dysfunction of pelvic region acute January 16, 2025 4:17pm Segmental and somatic dysfunction of thoracic region acute January 16, 2025 4:17pm Pars defect of lumbar spine chronic January 16, 2025 4:17pm Segmental and somatic dysfunction of cervical region acute February 18, 2025 3:55pm Segmental and somatic dysfunction of lumbar region acute February 18, 2025 3:55pm Segmental and somatic dysfunction of pelvic region acute February 18, 2025 3:55pm Segmental and somatic dysfunction of thoracic region acute February 18, 2025 3:55pm Pars defect of lumbar spine chronic February 18, 2025 3:55pm Segmental and somatic dysfunction of cervical region acute March 11 4:01pm Segmental and somatic dysfunction of lumbar region acute March 11 4:01pm Segmental and somatic dysfunction of pelvic region acute March 11 4:01pm Segmental and somatic dysfunction of thoracic region acute March 11 4:01pm Pars defect of lumbar spine chronic March 11, 2025 4:01pm Back pain noneactive March 11, 2 025 4:01pm Segmental and somatic dysfunction of cervical region acute April 07, 2 025 2:58pm Segmental and somatic dysfunction of lumbar region acute April 07, 2 025 2:58pm Segmental and somatic dysfunction of pelvic region acute April 07, 2 025 2:58pm Segmental and somatic dysfunction of thoracic region acute April 07, 2 025 2:58pm Pars defect of lumbar spine chronic April 07, 2025 2:58pm Segmental and somatic dysfunction of cervical region acute May 06 3:44pm Segmental and somatic dysfunction of lumbar region acute May 06 3:44pm Segmental and somatic dysfunction of pelvic region acute May 06 3:44pm Segmental and somatic dysfunction of thoracic region acute May 06 3:44pm Back pain noneactive May 06, 2 025 3:44pm [facility] Work Phone: 1(994) 379-839204-19-2025 Evaluation note* Diagnosis Onset Date Resolution Status Admit Date Cough acute November 16 11:21am Nasal congestion acute November 162024 11:21am PND (post-nasal drip) acute Oct 11:21am Rhinorrhea acute November 16 11:21am Segmental and somatic dysfunction of cervical region acute December 03, 2024 4: 15pm Segmental and somatic dysfunction of lumbar region acute December 03, 2024 4:15pm Segmental and somatic dysfunction of pelvic region acute December 03, 2024 4:15pm Segmental and somatic dysfunction of thoracic region acute December 03, 2024 4: 15pm Back pain noneactive December 03, 2024 4:15pm Neck pain acute January 16 4:17pm Segmental and somatic dysfunction of cervical region acute January 16, 2025 4:17pm Segmental and somatic dysfunction of lumbar region acute Dec 4:17pm Segmental and somatic dysfunction of pelvic region acute Dec 4:17pm Segmental and somatic dysfunction of thoracic region acute January 16, 2025 4:17pm Pars defect of lumbar spine chronic January 16, 2025 4:17pm Segmental and somatic dysfunction of cervical region acute February 18, 2025 3:55pm Segmental and somatic dysfunction of lumbar region acute Jan 3:55pm Segmental and somatic dysfunction of pelvic region acute Jan 3:55pm Segmental and somatic dysfunction of thoracic region acute February 18, 2025 3:55pm Back pain noneactive February 18 3:55pm [employer] Work Phone: 1([phone]) 881-636104-19-2025 Evaluation note* Diagnosis Onset Date Resolution Status Admit Date Cough acute November 16 11:21am Nasal congestion acute November 162024 11:21am PND (post-nasal drip) acute Oct 11:21am Rhinorrhea acute November 16 11:21am Segmental and somatic dysfunction of cervical region acute December 03, 2024 4: 15pm Segmental and somatic dysfunction of lumbar region acute December 03, 2024 4:15pm Segmental and somatic dysfunction of pelvic region acute December 03, 2024 4:15pm Segmental and somatic dysfunction of thoracic region acute December 03, 2024 4: 15pm Back pain noneactive December 03, 2024 4:15pm Neck pain acute January 16 4:17pm Segmental and somatic dysfunction of cervical region acute January 16, 2025 4:17pm Segmental and somatic dysfunction of lumbar region acute Dec 4:17pm Segmental and somatic dysfunction of pelvic region acute Dec 4:17pm Segmental and somatic dysfunction of thoracic region acute January 16, 2025 4:17pm Pars defect of lumbar spine chronic January 16, 2025 4:17pm Segmental and somatic dysfunction of cervical region acute February 18, 2025 3:55pm Segmental and somatic dysfunction of lumbar region acute Jan 3:55pm Segmental and somatic dysfunction of pelvic region acute Jan 3:55pm Segmental and somatic dysfunction of thoracic region acute February 18, 2025 3:55pm Pars defect of lumbar spine chronic February 18, 2025 3:55pm [employer] Work Phone: 1(634) 473-359804-19-2025 Evaluation note* Diagnosis Onset Date Resolution Status Admit Date Cough acute November 16 11:21am Nasal congestion acute November 162024 11:21am PND (post-nasal drip) acute Oct 11:21am Rhinorrhea acute November 16 11:21am Segmental and somatic dysfunction of cervical region acute December 03, 2024 4: 15pm Segmental and somatic dysfunction of lumbar region acute December 03, 2024 4:15pm Segmental and somatic dysfunction of pelvic region acute December 03, 2024 4:15pm Segmental and somatic dysfunction of thoracic region acute December 03, 2024 4: 15pm Back pain noneactive December 03, 2024 4:15pm Neck pain acute January 16 4:17pm Segmental and somatic dysfunction of cervical region acute January 16, 2025 4:17pm Segmental and somatic dysfunction of lumbar region acute Dec 4:17pm Segmental and somatic dysfunction of pelvic region acute Dec 4:17pm Segmental and somatic dysfunction of thoracic region acute January 16, 2025 4:17pm Pars defect of lumbar spine chronic January 16, 2025 4:17pm Segmental and somatic dysfunction of cervical region acute February 18, 2025 3:55pm Segmental and somatic dysfunction of lumbar region acute Jan 3:55pm Segmental and somatic dysfunction of pelvic region acute Jan 3:55pm Segmental and somatic dysfunction of thoracic region acute February 18, 2025 3:55pm Pars defect of lumbar spine chronic February 18, 2025 3:55pm Segmental and somatic dysfunction of cervical region acute March 11 4:01pm Segmental and somatic dysfunction of lumbar region acute Feb 4:01pm Segmental and somatic dysfunction of pelvic region acute Feb 4:01pm Segmental and somatic dysfunction of thoracic region acute March 11 4:01pm Back pain noneactive March 11, 025 4:01pm [facility] Work Phone: 1(770) 178-252703-17-2025 Evaluation note* Diagnosis Onset Date Resolution Status Admit Date Segmental and somatic dysfunction of cervical region acute October 14, 2024 4:22pm Segmental and somatic dysfunction of lumbar region acute [facility] 2024 4:22pm Segmental and somatic dysfunction of pelvic region acute [facility] 2024 4:22pm Segmental and somatic dysfunction of thoracic region acute October 14, 2024 4:22pm Back pain noneactive October 14 4:22pm Cough acute November 16 11:21am Nasal congestion acute November 162024 11:21am PND (post-nasal drip) acute Oct 11:21am Rhinorrhea acute November 16 11:21am Segmental and somatic dysfunction of cervical region acute December 03, 2024 4: 15pm Segmental and somatic dysfunction of lumbar region acute December 03, 2024 4:15pm Segmental and somatic dysfunction of pelvic region acute December 03, 2024 4:15pm Segmental and somatic dysfunction of thoracic region acute December 03, 2024 4: 15pm Back pain noneactive December 03, 2024 4:15pm Segmental and somatic dysfunction of cervical region acute January 16, 2025 4:17pm Segmental and somatic dysfunction of lumbar region acute Dec 4:17pm Segmental and somatic dysfunction of pelvic region acute Dec 4:17pm Segmental and somatic dysfunction of thoracic region acute January 16, 2025 4:17pm Back pain noneactive January 16 4:17pm [facility] Work Phone: [phone] NoteHNO ID: [id number] Author: Roxane Forman MD Service: ? Author Type: Physician Type: Progress Notes Filed: 02/27/2023 4:49 PM Note Text: Cecilia Calderon is a 22 year old female who presents for discussion regarding contraception options. Pt reports has been on ocps for year. Pt states got a new job and can't remember to take it and does not desire at this time. Started pills in HS for dysmenorrhea. Pt reports overall likes the pill and has no SE. Pt has no other concerns today. OB History T0 L0 SAB0 IAB0 Ectopic0 Multiple0 Live Births0 Account Advisor History LMP: 02/25/2023, Having periods Age at Menarche: Age at First : Age at Menopause: Account Advisor History Comments: Sexual Activity: Not Currently; No partner data on record Contraception: No contraception data on record PAST MEDICAL HISTORY Diagnosis Date Menarche -2011 Age 11 PMH - [facility] Procedure Laterality Date TOOTH EXTRACTION 01/2022 wisdom teeth FAMILY HISTORY Problem Relation Age of Onset None Other Social History Tobacco Use Smoking status: Never Smokeless tobacco: Never Vaping Use Vaping Use: Never used Substance Use Topics Alcohol use: Yes Comment: occasionally Drug use: No Current Outpatient Medications Medication Sig ESTARYLLA 0.25-35 mg-mcg per tablet TAKE 1 TABLET BY MOUTH ONE TIME DAILY -TAKE ACTIVE TABLETS ONLY. START A NEW PACK EVERY 3 WEEKS DIRECTED (Patient not taking: Reported on 02/27/2023) triamcinolone acetonide 0.1 % cream Apply 1 application to affected area twice daily as needed. TO AFFECTED AREA. (Patient not taking: Reported on 02/27/2023) No current facility-administered medications for this visit. Allergies As of Date: 02/27/2023 Allergen Noted Reaction CEPHALOSPORINS 11/21/2013 Rash Fully Assessed 02/27/2023 REVIEW OF SYSTEMS Abdomen: no pain Expanded ROS: no fever Allergies and current medication updated:Yes EXAM: BP 122/80 Ht 5' 3.5 (1.61m) Wt 170 lb 9.6 oz (77.4kg) LMP 02/25/2023 BMI 29.74 kg/(m2). GENERAL: pleasant, female in no apparent distress HEENT: Normocephalic and atraumatic NECK: full range of motion DERMATOLOGY: Normal and non-icteric NEURO: alert and oriented x3,exam grossly non-focal ASSESSMENT AND PLAN: Encounter Diagnosis ICD-10-CM 1. Dysmenorrhea N94.6 2. Encounter for other general counseling or advice on contraception Z30.09 3. Encounter for initial prescription of contraceptive pills Z30.011 4. All options including long-acting reversible contraceptive as well as patch and rings. After discussion of each patient would like to stick with the oral contraceptive pills. We discussed ways to remember to take them. Discussed that if she still has difficulty remembering to take them she can call the office and I will be happy to prescribe other forms. All questions were answered. Patient was happy with the plan. Patient will follow-up in the office in about 4 weeks for a routine annual exam with a Pap. I spent a total of 20 minutes on the date of the service which included preparing to see the patient, [id number] patient care, completing clinical documentation, obtaining and/or reviewing separately obtained history, performing a medically appropriate examination, and counseling and educating the patient/family/caregiver. Roxane Whittaker [facility]07-31-2023 History of Present illness Narrative* Roxane Forman MD - 02/27/2023 3:14 PM EDT Cecilia Calderon is a 22 year old female who presents for discussion regarding contraception options. Pt reports has been on ocps for year. Pt states got a new job and can't remember to take it anddoes not desire at this time. Started pills in HS for dysmenorrhea. Pt reports overall likes the pill and has no SE. Pt has no other concerns today. OB History T0 L0 SAB0 IAB0 Ectopic0 Multiple0 Live Births0 Account Advisor History LMP: 02/25/2023, Having periods Age at Menarche: Age at First : Age at Menopause: Account Advisor History Comments: Sexual Activity: Not Currently; No partner data on record Contraception: No contraception data on record PAST MEDICAL HISTORY Diagnosis Date Menarche -2011 Age 11 PMH - PAST MEDICAL HISTORY OF [facility] PAST SURGICAL HISTORY Procedure Laterality Date TOOTH EXTRACTION 01/2022 wisdom teeth FAMILY HISTORY Problem Relation Age of Onset None Other Social History Tobacco Use Smoking status: Never Smokeless tobacco: Never Vaping Use Vaping Use: Never used Substance Use Topics Alcohol use: Yes Comment: occasionally Drug use: No Current Outpatient Medications Medication Sig ESTARYLLA 0.25-35 mg-mcg per tablet TAKE 1 TABLET BY MOUTH ONE TIME DAILY -TAKE ACTIVE TABLETS ONLY. START A NEW PACK EVERY 3 WEEKS DIRECTED (Patient not taking: Reported on 02/27/2023) triamcinolone acetonide 0.1 % cream Apply 1 application to affected area twice daily as needed. TO AFFECTED AREA. (Patient not taking: Reported on 02/27/2023) No current facility-administered medications for this visit. Allergies As of Date: 02/27/2023 Allergen Noted Reaction CEPHALOSPORINS 11/21/2013 Rash Fully Assessed 02/27/2023 REVIEW OF SYSTEMS Abdomen: no pain Expanded ROS: no fever Allergies and current medication updated:Yes EXAM: BP 122/80 Ht 5' 3.5 (1.61m) Wt 170 lb 9.6 oz (77.4kg) LMP 02/25/2023 BMI 29.74 kg/(m^2). GENERAL: pleasant, female in no apparent distress HEENT: Normocephalic and atraumatic NECK: full range of motion DERMATOLOGY: Normal and non-icteric NEURO: alert and oriented x3,exam grossly non-focal ASSESSMENT AND PLAN: Encounter Diagnosis ICD-10-CM 1. Dysmenorrhea N94.6 2. Encounter for other general counseling or advice on contraception Z30.09 3. Encounter for initial prescription of contraceptive pills Z30.011 4. All options including long-acting reversible contraceptive as well as patch and rings. After discussion of each patient would like to stick with the oral contraceptive pills. We discussed ways to remember to take them. Discussed that if she still has difficulty remembering to take them she can call the office and I will be happy to prescribe other forms. All questions were answered. Patient was happy with the plan. Patient will follow-up in the office in about 4 weeks for a routine annual exam with a Pap. I spent a total of 20 minutes on the date of the service which included preparing to see the patient, [id number] patient care, completing clinical documentation, obtaining and/or reviewing separately obtained history, performing a medically appropriate examination, and counseling and educating the patient/family/caregiver. Roxane Whittaker MD documented [facility] encounter[facility] Miscellaneous Notes* Telephone Encounter - Caitlin Vaughn - 11/15/2021 3:57 PM EDT Spoke with patient, patient not currently living in state and will call back to schedule annual at a convenient time. * Telephone Encounter - Sil Garcia RN - 11/15/2021 8:56 AM EDT PSS: Please contact patient to schedule annual exam. Thank you. Sil Garcia RN documented in this encounterR[facility] HospitalEvaluation note* Diagnosis Dysmenorrhea- Primary Encounter for other general counseling or advice on contraception documented in this encounter [facility] HospitalReason for referral (narrative)No reason for referral information availableIndiana University Health [facility] Work Phone: Summary Purpose Family History No Family History Records Found Relationship Condition Age at Onset Recorded Date/T carey grandmother Hypertension Unknown grandfather Diabetes mellitus Unknown Advance Directives No Advanced Directives Records FoundNo Advanced Directives Records Found Chief Complaint and Reason for Visit Chief Complaint Admit Date BACK PAIN October 14, 2024 4:2 2pm COUGH, LOW GRADE FEVER November 16, 2024 11:21am EMPLOYEE COVID/ H November 16, 2024 11: 38am BACK PAIN December 03, 2024 4:15pm BACK PAIN January 16, 2025 4:17 pm Reason for Visit Admit Date Segmental and somatic dysfunction of cer vical region October 14, 2024 4:22pm Segmental and somatic dysfunction of lum bar region October 14, 2024 4:22pm Segmental and somatic dysfunction of pel yinka region October 14, 2024 4:22pm Segmental and somatic dysfunction of tho racic region October 14, 2024 4:22pm Back pain October 14, 2024 4:2 2pm Cough November 16, 2024 11: 21am Nasal congestion November 16, 2024 11: 21am PND (post-nasal drip) November 16, 2024 1 1:21am Rhinorrhea November 16, 2024 11: 21am Segmental and somatic dysfunction of cer vical region December 03, 2024 4:15pm Segmental and somatic dysfunction of lum bar region December 03, 2024 4:15pm Segmental and somatic dysfunction of pel yinka region December 03, 2024 4:15pm Segmental and somatic dysfunction of tho racic region December 03, 2024 4:15pm Back pain December 03, 2024 4:15pm Segmental and somatic dysfunction of cer vical region January 16, 2025 4:17pm Segmental and somatic dysfunction of lum bar region January 16, 2025 4:17pm Segmental and somatic dysfunction of pel yinka region January 16, 2025 4:17pm Segmental and somatic dysfunction of tho racic region January 16, 2025 4:17pm Back pain January 16, 2025 4:17 pm Chief Complaint Admit Date COUGH, LOW GRADE FEVER November 16, 2024 11:21am EMPLOYEE COVID/ [facility] November 16, 2024 11: 38am BACK PAIN December 03, 2024 4:15pm BACK PAIN January 16, 2025 4:17 pm BACK PAIN February 18, 2025 3:55 pm Reason for Visit Admit Date Cough November 16, 2024 11: 21am Nasal congestion November 16, 2024 11: 21am PND (post-nasal drip) November 16, 2024 1 1:21am Rhinorrhea November 16, 2024 11: 21am Segmental and somatic dysfunction of cer vical region December 03, 2024 4:15pm Segmental and somatic dysfunction of lum bar region December 03, 2024 4:15pm Segmental and somatic dysfunction of pel yinka region December 03, 2024 4:15pm Segmental and somatic dysfunction of tho racic region December 03, 2024 4:15pm Back pain December 03, 2024 4:15pm Neck pain January 16, 2025 4:17 pm Segmental and somatic dysfunction of cer vical region January 16, 2025 4:17pm Segmental and somatic dysfunction of lum bar region January 16, 2025 4:17pm Segmental and somatic dysfunction of pel yinka region January 16, 2025 4:17pm Segmental and somatic dysfunction of tho racic region January 16, 2025 4:17pm Pars defect of lumbar spine January 16, 2 025 4:17pm Segmental and somatic dysfunction of cer vical region February 18, 2025 3:55pm Segmental and somatic dysfunction of lum bar region February 18, 2025 3:55pm Segmental and somatic dysfunction of pel yinka region February 18, 2025 3:55pm Segmental and somatic dysfunction of tho racic region February 18, 2025 3:55pm Back pain February 18, 2025 3:55 pm Chief Complaint Admit Date COUGH, LOW GRADE FEVER November 16, 2024 11:21am EMPLOYEE COVID/ [facility] November 16, 2024 11: 38am BACK PAIN December 03, 2024 4:15pm BACK PAIN January 16, 2025 4:17 pm BACK PAIN February 18, 2025 3:55 pm THROAT CONGESTION March 04, 2025 10: 57am Reason for Visit Admit Date Cough November 16, 2024 11: 21am Nasal congestion November 16, 2024 11: 21am PND (post-nasal drip) November 16, 2024 1 1:21am Rhinorrhea November 16, 2024 11: 21am Segmental and somatic dysfunction of cer vical region December 03, 2024 4:15pm Segmental and somatic dysfunction of lum bar region December 03, 2024 4:15pm Segmental and somatic dysfunction of pel yinka region December 03, 2024 4:15pm Segmental and somatic dysfunction of tho racic region December 03, 2024 4:15pm Back pain December 03, 2024 4:15pm Neck pain January 16, 2025 4:17 pm Segmental and somatic dysfunction of cer vical region January 16, 2025 4:17pm Segmental and somatic dysfunction of lum bar region January 16, 2025 4:17pm Segmental and somatic dysfunction of pel yinka region January 16, 2025 4:17pm Segmental and somatic dysfunction of tho racic region January 16, 2025 4:17pm Pars defect of lumbar spine January 16, 2 025 4:17pm Segmental and somatic dysfunction of cer vical region February 18, 2025 3:55pm Segmental and somatic dysfunction of lum bar region February 18, 2025 3:55pm Segmental and somatic dysfunction of pel yinka region February 18, 2025 3:55pm Segmental and somatic dysfunction of tho racic region February 18, 2025 3:55pm Pars defect of lumbar spine February 18, 2 025 3:55pm Chief Complaint Admit Date COUGH, LOW GRADE FEVER November 16, 2024 11:21am EMPLOYEE COVID/ [facility] November 16, 2024 11: 38am BACK PAIN December 03, 2024 4:15pm BACK PAIN January 16, 2025 4:17 pm BACK PAIN February 18, 2025 3:55 pm THROAT CONGESTION March 04, 2025 10: 57am BACK PAIN March 11, 2025 4: 01pm Reason for Visit Admit Date Cough November 16, 2024 11: 21am Nasal congestion November 16, 2024 11: 21am PND (post-nasal drip) November 16, 2024 1 1:21am Rhinorrhea November 16, 2024 11: 21am Segmental and somatic dysfunction of cer vical region December 03, 2024 4:15pm Segmental and somatic dysfunction of lum bar region December 03, 2024 4:15pm Segmental and somatic dysfunction of pel yinka region December 03, 2024 4:15pm Segmental and somatic dysfunction of tho racic region December 03, 2024 4:15pm Back pain December 03, 2024 4:15pm Neck pain January 16, 2025 4:17 pm Segmental and somatic dysfunction of cer vical region January 16, 2025 4:17pm Segmental and somatic dysfunction of lum bar region January 16, 2025 4:17pm Segmental and somatic dysfunction of pel yinka region January 16, 2025 4:17pm Segmental and somatic dysfunction of tho racic region January 16, 2025 4:17pm Pars defect of lumbar spine January 16, 2 025 4:17pm Segmental and somatic dysfunction of cer vical region February 18, 2025 3:55pm Segmental and somatic dysfunction of lum bar region February 18, 2025 3:55pm Segmental and somatic dysfunction of pel yinka region February 18, 2025 3:55pm Segmental and somatic dysfunction of tho racic region February 18, 2025 3:55pm Pars defect of lumbar spine February 18, 2 025 3:55pm Segmental and somatic dysfunction of cer vical region March 11, 2025 4:01pm Segmental and somatic dysfunction of lum bar region March 11, 2025 4:01pm Segmental and somatic dysfunction of pel yinka region March 11, 2025 4:01pm Segmental and somatic dysfunction of tho racic region March 11, 2025 4:01pm Back pain March 11, 2025 4: 01pm Chief Complaint Admit Date BACK PAIN January 16, 2025 4:17 pm BACK PAIN February 18, 2025 3:55 pm THROAT CONGESTION March 04, 2025 10: 57am BACK PAIN March 11, 2025 4: 01pm BACK PAIN April 07, 2025 2:58pm Reason for Visit Admit Date Neck pain January 16, 2025 4:17 pm Segmental and somatic dysfunction of cer vical region January 16, 2025 4:17pm Segmental and somatic dysfunction of lum bar region January 16, 2025 4:17pm Segmental and somatic dysfunction of pel yinka region January 16, 2025 4:17pm Segmental and somatic dysfunction of tho racic region January 16, 2025 4:17pm Pars defect of lumbar spine January 16 025 4:17pm Segmental and somatic dysfunction of cer vical region February 18, 2025 3:55pm Segmental and somatic dysfunction of lum bar region February 18, 2025 3:55pm Segmental and somatic dysfunction of pel yinka region February 18, 2025 3:55pm Segmental and somatic dysfunction of tho racic region February 18, 2025 3:55pm Pars defect of lumbar spine February 18, 2 025 3:55pm Segmental and somatic dysfunction of cer vical region March 11, 2025 4:01pm Segmental and somatic dysfunction of lum bar region March 11, 2025 4:01pm Segmental and somatic dysfunction of pel yinka region March 11, 2025 4:01pm Segmental and somatic dysfunction of tho racic region March 11, 2025 4:01pm Pars defect of lumbar spine March 11, 2025 4:01pm Back pain March 11, 2025 4: 01pm Segmental and somatic dysfunction of cer vical region April 07, 2025 2:58pm Segmental and somatic dysfunction of lum bar region April 07, 2025 2:58pm Segmental and somatic dysfunction of pel yinka region April 07, 2025 2:58pm Segmental and somatic dysfunction of tho racic region April 07, 2025 2:58pm Back pain April 07, 2025 2:58pm Chief Complaint Admit Date BACK PAIN January 16, 2025 4:17 pm BACK PAIN February 18, 2025 3:55 pm THROAT CONGESTION March 04, 2025 10: 57am BACK PAIN March 11, 2025 4: 01pm BACK PAIN April 07, 2025 2:58pm BACK PAIN May 06, 2025 3: 44pm Reason for Visit Admit Date Neck pain January 16, 2025 4:17 pm Segmental and somatic dysfunction of cer vical region January 16, 2025 4:17pm Segmental and somatic dysfunction of lum bar region January 16, 2025 4:17pm Segmental and somatic dysfunction of pel yinka region January 16, 2025 4:17pm Segmental and somatic dysfunction of tho racic region January 16, 2025 4:17pm Pars defect of lumbar spine January 16 2 025 4:17pm Segmental and somatic dysfunction of cer vical region February 18, 2025 3:55pm Segmental and somatic dysfunction of lum bar region February 18, 2025 3:55pm Segmental and somatic dysfunction of pel yinka region February 18, 2025 3:55pm Segmental and somatic dysfunction of tho racic region February 18, 2025 3:55pm Pars defect of lumbar spine February 18 025 3:55pm Segmental and somatic dysfunction of cer vical region March 11, 2025 4:01pm Segmental and somatic dysfunction of lum bar region March 11, 2025 4:01pm Segmental and somatic dysfunction of pel yinka region March 11, 2025 4:01pm Segmental and somatic dysfunction of tho racic region March 11, 2025 4:01pm Pars defect of lumbar spine March 11, 2025 4:01pm Back pain March 11, 2025 4: 01pm Segmental and somatic dysfunction of cer vical region April 07, 2025 2:58pm Segmental and somatic dysfunction of lum bar region April 07, 2025 2:58pm Segmental and somatic dysfunction of pel yinka region April 07, 2025 2:58pm Segmental and somatic dysfunction of tho racic region April 07, 2025 2:58pm Pars defect of lumbar spine March 2:58pm Segmental and somatic dysfunction of cer vical region May 06, 2025 3:44pm Segmental and somatic dysfunction of lum bar region May 06, 2025 3:44pm Segmental and somatic dysfunction of pel yinka region May 06, 2025 3:44pm Segmental and somatic dysfunction of tho racic region May 06, 2025 3:44pm Back pain May 06, 2025 3: 44pm Additional Source Comments Source Comments (unrecognize d section and content) In the event this informatio n is protected by the Federal Confidentiality of Alcohol and Drug Abuse Patient Records regulations: The Federal rules restrict any use of the information to criminally investigate or prosecute any alcohol or drug abuse patient.[facility] HospitalIn the event this information is protected by the Federal Confidentiality of Alcohol and Drug Abuse Patient Records regulations: The Federal rules restrict any use of the information to criminally investigate or prosecute any alcohol or drug abuse patient.[facility] Reason for Visit (unrecogniz ed section and content) Reason Comments Refill Request Reason Comments Discussion Contraception Care Teams (unrecognized sec tion and content) Sodder Relationship Specialty Start Date End Date Alexander Rahman MD [address] [place] [address] PCP - General Family Practice 07/18/14 Sodder Relationship Specialty Start Date End Date Alexander Rahman MD [address] [place] [address] PCP - General Family Medicine 07/18/14 Team Status: Active Member Role Status Dates Dr. Kavita Del Valle MD Primary Care Provider Active Team Status: Inactive Member Role Status Dates Dr. Kavita Del Valle MD Primary Care Provider Active Start: September 19, 2024 End: September 19, 2024 JACKLYN Drievr Attending Provider Active St art: September 19, 2024 End: September 19, 2024 JACKLYN Driver Referring Provider Active St art: September 19, 2024 End: September 19, 2024 Team Status: Inactive Member Role Status Dates Dr. Kavita Del Valle MD Primary Care Provider Active Start: October 14, 2024 End: October 14, 2024 Dr. Kavita Del Valle MD Referring Provider Active Start: October 14, 2024 End: October 14, 2024 Dr. Paris Cárdenas DC Attending Provider Active S tart: October 14, 2024 End: October 14, 2024 Team Status: Inactive Member Role Status Dates Dr. Kavita Del Valle MD Primary Care Provider Active Start: November 16, 2024 End: November 16, 2024 Dr. Kavita Del Valle MD Referring Provider Active Start: November 16, 2024 End: November 16, 2024 NAVJOT Arce Attending Provider Active Start: November 16, 2024 End: November 16, 2024 Team Status: Inactive Member Role Status Dates Dr. Kavita Del Valle MD Primary Care Provider Active Start: December 03, 2024 End: December 03, 2024 Dr. Kavita Del Valle MD Referring Provider Active Start: December 03, 2024 End: December 03, 2024 Dr. Paris Cárdenas DC Attending Provider Active S tart: December 03, 2024 End: December 03, 2024 Team Status: Inactive Member Role Status Dates Dr. Kavita Del Valle MD Primary Care Provider Active Start: January 16, 2025 End: January 16, 2025 Dr. Kavita Del Valle MD Referring Provider Active Start: January 16, 2025 End: January 16, 2025 Dr. Paris Cárdenas DC Attending Provider Active S tart: January 16, 2025 End: January 16, 2025 Team Status: Active Member Role/Relationship Status Dates Dr. Kavita Del Valle MD Primary Care Provider Active Team Status: Inactive Member Role/Relationship Status Dates Dr. Kavita Del Valle MD Primary Care Provider Active Start: November 16, 2024 End: November 16, 2024 Dr. Kavita Del Valle MD Referring Provider Active Start: November 16, 2024 End: November 16, 2024 NAVJOT Arce Attending Provider Active Start: November 16, 2024 End: November 16, 2024 Team Status: Inactive Member Role/Relationship Status Dates Dr. Kavita Del Valle MD Primary Care Provider Active Start: November 16, 2024 End: November 16, 2024 Dr. Kavita Del Valle MD Referring Provider Active Start: November 16, 2024 End: November 16, 2024 NAVJOT Arce Attending Provider Active Start: November 16, 2024 End: November 16, 2024 Team Status: Inactive Member Role/Relationship Status Dates Dr. Kavita Del Valle MD Primary Care Provider Active Start: December 03, 2024 End: December 03, 2024 Dr. Kavita Del Valle MD Referring Provider Active Start: December 03, 2024 End: December 03, 2024 Dr. Paris Cárdenas DC Attending Provider Active S tart: December 03, 2024 End: December 03, 2024 Team Status: Inactive Member Role/Relationship Status Dates Dr. Kavita Del Valle MD Primary Care Provider Active Start: January 16, 2025 End: January 16, 2025 Dr. Kavita Del Valle MD Referring Provider Active Start: January 16, 2025 End: January 16, 2025 Dr. Paris Cárdenas DC Attending Provider Active S tart: January 16, 2025 End: January 16, 2025 Team Status: Inactive Member Role/Relationship Status Dates Dr. Kavita Del Valle MD Primary Care Provider Active Start: February 18, 2025 End: February 18, 2025 Dr. Kavita Del Valle MD Referring Provider Active Start: February 18, 2025 End: February 18, 2025 Dr. Paris Cárdenas DC Attending Provider Active S tart: February 18, 2025 End: February 18, 2025 Team Status: Inactive Member Role/Relationship Status Dates Dr. Kavita Del Valle MD Primary Care Provider Active Start: March 04, 2025 End: March 04, 2025 Dr. Kavita Del Valle MD Referring Provider Active Start: March 04, 2025 End: March 04, 2025 Valentino Anderson PA, PA Attending Provider Active Start: March 04, 2025 End: March 04, 2025 Team Status: Inactive Member Role/Relationship Status Dates Dr. Kavita Del Valle MD Primary Care Provider Active Start: March 11, 2025 End: March 11, 2025 Dr. Kavita Del Valle MD Referring Provider Active Start: March 11, 2025 End: March 11, 2025 Dr. Paris Cárdenas DC Attending Provider Active S tart: March 11, 2025 End: March 11, 2025 Team Status: Inactive Member Role/Relationship Status Dates Dr. Kavita Del Valle MD Primary Care Provider Active Start: January 16, 2025 End: January 16, 2025 Dr. Kavita Del Valle MD Referring Provider Active Start: January 16, 2025 End: January 16, 2025 Dr. Paris Cárdenas DC Attending Provider Active S tart: January 16, 2025 End: January 16, 2025 Team Status: Inactive Member Role/Relationship Status Dates Dr. Kavita Del Valle MD Primary Care Provider Active Start: February 18, 2025 End: February 18, 2025 Dr. Kavita Del Valle MD Referring Provider Active Start: February 18, 2025 End: February 18, 2025 Dr. Paris Cárdenas DC Attending Provider Active S tart: February 18, 2025 End: February 18, 2025 Team Status: Inactive Member Role/Relationship Status Dates Dr. Kavita Del Valle MD Primary Care Provider Active Start: March 04, 2025 End: March 04, 2025 Dr. Kavita Del Valle MD Referring Provider Active Start: March 04, 2025 End: March 04, 2025 Valentino Anderson PA, PA Attending Provider Active Start: March 04, 2025 End: March 04, 2025 Team Status: Inactive Member Role/Relationship Status Dates Dr. Kavita Del Valle MD Primary Care Provider Active Start: March 11, 2025 End: March 11, 2025 Dr. Kavita Del Valle MD Referring Provider Active Start: March 11, 2025 End: March 11, 2025 Dr. Paris Cárdenas DC Attending Provider Active S tart: March 11, 2025 End: March 11, 2025 Team Status: Inactive Member Role/Relationship Status Dates Dr. Kavita Del Valle MD Primary Care Provider Active Start: April 07, 2025 End: April 07, 2025 Dr. Kavita Del Valle MD Referring Provider Active Start: April 07, 2025 End: April 07, 2025 Dr. Paris Cárdenas DC Attending Provider Active S tart: April 07, 2025 End: April 07, 2025 Team Status: Active Member Role/Relationship Status Dates Dr. Kavita Del Valle MD Primary care physician Active Team Status: Inactive Member Role/Relationship Status Dates Dr. Kavita Del Valle MD Primary care physician Active Start: January 16, 2025 End: January 16, 2025 Dr. Kavita Del Valle MD Referring Provider Active Start: January 16, 2025 End: January 16, 2025 Dr. Paris Cárdenas DC Attending physician Active Start: January 16, 2025 End: January 16, 2025 Team Status: Inactive Member Role/Relationship Status Dates Dr. Kavita Del Valle MD Primary care physician Active Start: February 18, 2025 End: February 18, 2025 Dr. Kavita Del Valle MD Referring Provider Active Start: February 18, 2025 End: February 18, 2025 Dr. Paris Cárdenas DC Attending physician Active Start: February 18, 2025 End: February 18, 2025 Team Status: Inactive Member Role/Relationship Status Dates Dr. Kavita Del Valle MD Primary care physician Active Start: March 04, 2025 End: March 04, 2025 Dr. Kavita Del Valle MD Referring Provider Active Start: March 04, 2025 End: March 04, 2025 Valentino Anderson PA, PA Attending physician Active Start: March 04, 2025 End: March 04, 2025 Team Status: Inactive Member Role/Relationship Status Dates Dr. Kavita Del Valle MD Primary care physician Active Start: March 11, 2025 End: March 11, 2025 Dr. Kavita Del Valle MD Referring Provider Active Start: March 11, 2025 End: March 11, 2025 Dr. Paris Cárdenas DC Attending physician Active Start: March 11, 2025 End: March 11, 2025 Team Status: Inactive Member Role/Relationship Status Dates Dr. Kavita Del Valle MD Primary care physician Active Start: April 07, 2025 End: April 07, 2025 Dr. Kavita Del Valle MD Referring Provider Active Start: April 07, 2025 End: April 07, 2025 Dr. Paris Cárdenas DC Attending physician Active Start: April 07, 2025 End: April 07, 2025 Team Status: Inactive Member Role/Relationship Status Dates Dr. Kavita Del Valle MD Primary care physician Active Start: May 06, 2025 End: May 06, 2025 Dr. Kavita Del Valle MD Referring Provider Active Start: May 06, 2025 End: May 06, 2025 Dr. Paris Cárdenas DC Attending physician Active Start: May 06, 2025 End: May 06, 2025 INFORMATION SOURCE (unrecogn ized section and content) DATE CREATED AUTHOR 02/28/2023 [facility] DATE CREATED AUTHOR AUTHOR'S ORGANIZ ATION 06/11/2025 [facility] FOR RECORDS PERTAINING TO PATIENTS WHO ARE OR HAVE BEEN ENROLLED IN A CHEMICAL DEPENDENCY/SUBSTANCEABUSE PROGRAM, SOME INFORMATION MAY BE OMITTED. This clinical summary was aggregated from multiple sources. Caution should be exercised in using it in the provision of clinical care. This summary normalizes information from multiple sources, and as a consequence, information in this document may materially change the coding, format and clinical context of patient data. In addition, data may be omitted in some cases. CLINICAL DECISIONS SHOULD BE BASED ON THE PRIMARY CLINICAL RECORDS. [employer] provides no warranty or guarantee of the accuracy or completeness of information in this document.
[2025-07-30 12:24] LABS: Hematocrit 39.9 % (37-47); Hemoglobin 13.3 g/dL (12.0-15.0); Immature Granulocytes Count 0.020 X10^3/uL (0.0-0.0); Mean Corp Hgb Conc 33.3 g/dL (32-36); Mean Corpuscular Volume 87.1 fL (81-99); Mean Platelet Vol. 10.3 fl (6.2-12.0); NRBC Flagged by Analyzer 0 % (0-5); Platelet Count 262 K/mm3 (150-450); RBC Distribution Width CV 14.1 % (11.6-14.6); RBC Distribution Width SD 43.8 fl (35.1-43.9); Red Blood Count 4.58 M/mm3 (4.2-5.4); White Blood Count 8.6 K/mm3 (4.4-11.0)
[2025-07-30 12:45] LABS: AST(SGOT) 28 U/L (<=31); Alanine Aminotransfer ALT/SGPT 29 U/L (<=34); Albumin, Serum 4.2 g/dL (3.5-5.0); Alkaline Phosphatase 105 U/L (35-104); Anion Gap 9 (7-18); BUN 12 mg/dL (4-19); BUN/Creat Ratio 15.5 RATIO (10-20); Calcium,Total 9.7 mg/dL (7.6-11.0); Carbon Dioxide 28.4 mmol/L (20.0-29.0); Chloride 103 mmol/L (96-106); Cholesterol 196 mg/dL (<=200); Globulin 3.3 g/dL (2.2-4.2); Glucose 97 mg/dL (70-99); Low Density Lipoprotein Calc. 130 mg/dL; Potassium 4.6 mmol/L (3.5-5.1); Triglycerides 91 mg/dL; Very Low Density Lipoprotein 18 mg/dL (5-40); Vitamin D,25 Hydroxy 17.6 ng/mL (30-100); cholesterol:hdl ratio screen 3.99
== END | disposition home or self-care (01) ==
LOC: BWCLAB 09:34
PROVIDERS: PCP Internal Medicine; Visit Provider Nurse Practitioner Family
DX: E66.9 Obesity, unspecified (principal); E66.89 Other obesity not elsewhere classified
CPT/HCPCS: 36415; 80053; 80061; 82306; 84439; 84443; 85025